=== PATIENT | female | born 1975 | race Caucasian/White ===

== ENCOUNTER 2016-12-27 16:07 | Observation (INO) ==
--- NOTE | 2016-12-27 17:03 | Emergency Department Note ---
Disposition Clinical Impression: Pyelonephritis, Ureterolithiasis, Hydronephrosis with obstructing calculus Disposition: Admitted As Inpatient Condition: Good Time of Disposition: 18:43 Abdominal Pain HPI - General Chief Complaint: ED Abdominal Pain Stated Complaint: Right Flank Pain Time Seen by Provider: 12/27/16 16:47 Source: patient Mode of arrival: ambulatory Limitations: no limitations Nursing Notes Reviewed: Yes Vital Signs Reviewed: Yes - History of Present Illness HPI Narrative: 41-year-old female history of PCOS presents to the ED with right flank pain. She reports right flank pain that sharp with radiation into the groin and ongoing for the past 4 days. She reports nausea for the past few days with a few episodes of vomiting today. She notes blood in her urine. She was evaluated by her primary care physician yesterday Dr. Lincoln was given tramadol, Zofran Flomax. There is concern for possible obstruction issues recommended to come here for CT imaging. She has a history of kidney stones in the past, episode 4 years ago. States this feels just like it. At that time she required lithotripsy by her urologist at [facility]. No issues since. She has reported some nausea and a low-grade fever here today. Denies any abdominal surgeries. Denies any cough, chest pain, shortness of breath, or blood stool. Pt Subjective Complaint: flank pain Pain Scale: 6 - Related Data Home Medications Medication Instructions Recorded Confirmed Loratadine [Allergy Relief] 10 mg PO DAILY 07/24/16 12/27/16 Metformin [Glucophage] 500 mg PO BID 07/24/16 12/27/16 [place]-3/Dha/Epa/Fish Oil [Fish Oil 1,000 mg PO BID 12/27/16 12/27/16 1,000 mg Softgel] Ondansetron [Zofran] 8 mg PO Q8H PRN 12/27/16 12/27/16 Tamsulosin [Flomax] 0.4 mg PO DAILY 12/27/16 12/27/16 Tramadol HCl [Ultram] 50 mg PO Q6H PRN 12/27/16 12/27/16 Allergies Allergy/AdvReac Type Severity Reaction Status Date / Time No Known Allergies Allergy Verified 07/24/16 10:38 All systems ED: reviewed and negative except as stated. Constitutional: Reports: fever. Denies: chills Cardiovascular: Denies: chest pain Respiratory: Denies: cough, dyspnea Gastrointestinal: Reports: nausea, vomiting. Denies: abdominal pain, diarrhea, melena, hematochezia Genitourinary: Reports: hematuria. 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 Psychiatric history: Reports: no psych history - Social History Smoking status: Never smoker Alcohol use: Reports: none Drug use: Reports: none Physical Exam - General Limitations: no limitations General appearance: alert, in no apparent distress - Head Head exam: atraumatic, normocephalic, normal inspection - Eye Eye exam: Present: normal appearance, PERRL, EOMI - ENT ENT exam: normal exam, normal oropharynx, mucous membranes moist - Neck Neck exam: Present: normal inspection, full ROM, trachea midline - Chest Chest inspection: Present: normal inspection, symmetric chest wall rise - Respiratory Respiratory exam: Present: normal lung sounds bilaterally. Absent: respiratory distress, wheezes - Cardiovascular Cardiovascular exam: Present: regular rate, normal rhythm, normal heart sounds. Absent: systolic murmur, diastolic murmur - Abdominal Exam Abdominal exam: Present: soft, Non-Tender, normal bowel sounds. Absent: tenderness, distention, guarding, rebound, rigidity, Caal's sign, Rovsing's sign, tenderness at McBurney's Point - Extremities Exam Extremities exam: Present: normal inspection, full ROM, normal capillary refill. Absent: tenderness, pedal edema, calf tenderness - Back Exam Back exam: Present: normal inspection, full ROM. Absent: tenderness, CVA tenderness (R), CVA tenderness (L) - Neurological Exam Neurological exam: Present: alert, oriented X3 - Psychiatric Psychiatric exam: Present: normal affect, normal mood - Skin Skin exam: Present: warm, dry, intact, normal color Course Course Narrative: 41-year-old female presents with right flank pain ongoing for past 4 days. History of kidney stones in the past. She has a low-grade fever 100.3. Reports nausea with some vomiting. She took tramadol prior to arrival. She is currently in no acute distress. Lungs are clear auscultation bilaterally. Abdomen is soft nontender nondistended. She does not had any CVA tenderness. She reports coming for possible CT imaging to rule out impacted stone. Multiple discussions with patient regarding risks and benefits with CT imaging. She reports this feels just like here kidney stones. Will check basic labs, IVF, urine, and CT scan without contrast. - Reevaluation(s) Reevaluation #1: Urine looks consistent with possible pyelonephritis, TNTC WBC, many bacteria, moderate leuko esterase and large nitrites. Will treat with fluids and Ceftriaxone. Time: 17:41 Reevaluation #2: She has a 8mm obstructing stone in the right ureter. Given her urine and the fever concern for pyelonephritis and sepsis. WBC is elevated 18.7. Will call Urology for possible stent placement tonight. Blood cultures and lactate ordered. She will be given the 3L fluid resuscitation. Morphine for pain. Patient last ate at 11 o'clock this morning. Abdomen/Pelvis CT 12/27/16 16:59 IMPRESSION: Moderate right hydronephrosis and hydroureter with surrounding infiltration of fat. 8 mm obstructing calculus at the distal right ureter. D/ / Errol Martinez MD / Errol Martinez MD Interpreting Provider: Errol Martinez MD Time: 18:39 Reevaluation #3: Dr. Urias is at bedside to evaluate and obtain consent for surgery. Time: 19:30 - Consultations Consultation #1: Spoke to Dr. Pavel Urias urologist for possible stone removal. Orders to keep her NPO tonight. Possible removal tonight vs. tomorrow. Will call back. Time: 18:40 Consultation #2: Patient admitted to Dr. Urias, he will come in for surgery and stent tonight. Patient is in agreement with plan. No questions. Time: 18:54 Vital Signs Temperature 100.3 F H 12/27/16 16:08 Pulse Rate 65 12/27/16 16:08 Respiratory Rate 18 12/27/16 16:08 Blood Pressure 120/82 12/27/16 16:08 O2 Sat by Pulse Oximetry 95 12/27/16 16:08 Temperature 100.9 F H 12/27/16 21:17 Pulse Rate 118 12/27/16 22:51 Respiratory Rate 18 12/27/16 21:17 Blood Pressure 122/69 12/27/16 22:51 O2 Sat by Pulse Oximetry 95 12/27/16 22:51 Oxygen Delivery Oxygen Delivery Room Air Abdominal Pain - Medical Records Medical records reviewed: Yes I reviewed the patient's medical records. - Lab Data Lab results reviewed: Yes I reviewed the patient's lab results. Result diagrams: 12/27/16 17:17 12/27/16 17:17 Lab Results 12/27/16 12/27/16 12/27/16 Range/Units 16:48 16:50 17:17 WBC 18.7 H (4.3-11.1) K/mcL RBC 4.46 (3.82-4.97) M/mcL Hgb 12.4 (11.5-15.4) g/dL Hct 38.1 (35.3-44.9) % MCV 85.4 (83.0-100.0) fL MCH 27.8 L (28.0-33.3) pg MCHC 32.5 (31.6-35.5) g/dL RDW 14.3 (11.5-14.5) % Plt Count 244 (140-400) K/mcL MPV 9.5 (9.4-12.4) fL Immature Gran % 0.6 (0-4) % Seg Neutrophils % 86.8 % Lymphocytes % 5.8 % Monocytes % 6.6 % Eosinophils % 0.0 % Basophils % 0.2 % Neutrophils # 16.3 H (1.6-8.9) K/mcL Lymphocytes # 1.1 (0.6-4.6) K/mcL Monocytes # 1.2 (0.0-1.3) K/mcL Eosinophils # 0.0 (0.0-0.6) K/mcL Basophils # 0.0 (0.0-0.2) K/mcL Sodium (136-145) mEq/L Potassium (3.5-4.5) mEq/L Chloride (98-109) mEq/L Carbon Dioxide (19-29) mEq/L BUN (7-20) mg/dL Creatinine (0.57-1.11) mg/dL Est GFR ( Amer) (> 60) Est GFR (Non-Af Amer) (> 60) BUN/Creatinine Ratio (6-26) Glucose (70-99) mg/dL Calculated Osmolality (280-300) Calcium (8.6-10.8) mg/dL Total Bilirubin (0.2-1.2) mg/dL Direct Bilirubin (0.0-0.5) mg/dL Indirect Bilirubin (0.0-1.2) mg/dL AST (5-34) Units/L ALT (0-55) Units/L Alkaline Phosphatase (38-126) Units/L Serum Total Protein (6.0-8.3) g/dL Albumin (3.5-5.0) g/dL Globulin (2.4-3.5) g/dL Albumin/Globulin Ratio (1.1-2.2) Amylase (25-125) Units/L Lipase (8-78) Units/L Urine Color Yellow (Yellow) Urine Clarity Cloudy A (Clear) Urine pH 6.0 (5.0-8.0) pH Units Ur Specific [place] 1.021 (1.010-1.025) Urine Protein 30 H (Neg-Trace) mg/dL Urine Glucose (UA) Normal (Normal) mg/dL Urine Ketones Negative (Negative) mg/dL Urine Blood Small H (Negative) Urine Nitrite Positive A (Negative) Urine Bilirubin Negative (Negative) Urine Urobilinogen Normal (Normal) mg/dL Ur Leukocyte Esterase Moderate H (Negative) Urine Microscopic RBC 0-3 (0-3) per hpf Urine Microscopic WBC TNTC H (0-3) per hpf Ur Squamous Epith Cells Many H (None-Few) per lpf Urine Bacteria Many H (None-Few) per hpf Ur Culture Indicated? YES A (NO) Urine Test Negative (Negative) 12/27/16 Range/Units 17:17 WBC (4.3-11.1) K/mcL RBC (3.82-4.97) M/mcL Hgb (11.5-15.4) g/dL Hct (35.3-44.9) % MCV (83.0-100.0) fL MCH (28.0-33.3) pg MCHC (31.6-35.5) g/dL RDW (11.5-14.5) % Plt Count (140-400) K/mcL MPV (9.4-12.4) fL Immature Gran % (0-4) % Seg Neutrophils % % Lymphocytes % % Monocytes % % Eosinophils % % Basophils % % Neutrophils # (1.6-8.9) K/mcL Lymphocytes # (0.6-4.6) K/mcL Monocytes # (0.0-1.3) K/mcL Eosinophils # (0.0-0.6) K/mcL Basophils # (0.0-0.2) K/mcL Sodium 133 L (136-145) mEq/L Potassium 3.6 (3.5-4.5) mEq/L Chloride 97 L (98-109) mEq/L Carbon Dioxide 26 (19-29) mEq/L BUN 19 (7-20) mg/dL Creatinine 1.23 H (0.57-1.11) mg/dL Est GFR ( Amer) 59 L (> 60) Est GFR (Non-Af Amer) 49 L (> 60) BUN/Creatinine Ratio 15 (6-26) Glucose 148 H (70-99) mg/dL Calculated Osmolality 281 (280-300) Calcium 9.3 (8.6-10.8) mg/dL Total Bilirubin 1.2 (0.2-1.2) mg/dL Direct Bilirubin 0.4 (0.0-0.5) mg/dL Indirect Bilirubin 0.8 (0.0-1.2) mg/dL AST 13 (5-34) Units/L ALT 22 (0-55) Units/L Alkaline Phosphatase 78 (38-126) Units/L Serum Total Protein 8.0 (6.0-8.3) g/dL Albumin 3.4 L (3.5-5.0) g/dL Globulin 4.6 H (2.4-3.5) g/dL Albumin/Globulin Ratio 0.7 L (1.1-2.2) Amylase 44 (25-125) Units/L Lipase 13 (8-78) Units/L Urine Color (Yellow) Urine Clarity (Clear) Urine pH (5.0-8.0) pH Units Ur Specific [place] (1.010-1.025) Urine Protein (Neg-Trace) mg/dL Urine Glucose (UA) (Normal) mg/dL Urine Ketones (Negative) mg/dL Urine Blood (Negative) Urine Nitrite (Negative) Urine Bilirubin (Negative) Urine Urobilinogen (Normal) mg/dL Ur Leukocyte Esterase (Negative) Urine Microscopic RBC (0-3) per hpf Urine Microscopic WBC (0-3) per hpf Ur Squamous Epith Cells (None-Few) per lpf Urine Bacteria (None-Few) per hpf Ur Culture Indicated? (NO) Urine Test (Negative) - Radiology Data Radiology results reviewed: Yes I reviewed the patient's radiology results. Abdomen/Pelvis CT 12/27/16 16:59 IMPRESSION: Moderate right hydronephrosis and hydroureter with surrounding infiltration of fat. 8 mm obstructing calculus at the distal right ureter. D/ / Errol Martinez MD / Errol Martinez MD Interpreting Provider: Errol Martinez MD Attestation Statement - Attestation Attestation: I examined this patient and my medical decision-making was reviewed with the YARD OPERATOR/PA/Advanced Practice Nurse/Resident Physician. I agree with the documented findings, disposition and treatment plan as described except to the extent set forth below. Patient to the emergency department if any flank pain. Concern for kidney stones. She has had to have lithotripsy in the past. On exam she has right CVA tenderness. She is febrile. Plan. The patient has a UTI per her urinalysis with positive nitrites, large leuks, and too many to count white cells. CT pending to rule out an impacted stone. Giving IV fluids and Rocephin at this time.
[2016-12-27 17:06] LABS: Bilirubin,Urine Negative (Negative); Blood,Urine Small (Negative); Clarity,Urine Cloudy (Clear); Color,Urine Yellow (Yellow); Glucose,Urine (UA) Normal (Normal); Ketones,Urine Negative (Negative); Leukocyte Esterase,Urine Moderate (Negative); Nitrite,Urine Positive (Negative); Protein,Urine 30 mg/dL (Neg-Trace); Specific Gravity,Urine 1.021 (1.010-1.025); Urobilinogen,Urine Normal (Normal)
[2016-12-27 17:08] LABS: Bacteria,Urine Many per hpf (None-Few); RBC,Urine 0-3 per hpf (0-3); Squamous Epithelial Cell,Urine Many per lpf (None-Few); WBC,Urine TNTC per hpf (0-3)
[2016-12-27] MEDS ORDERED: 0.9 % Sodium Chloride 1,000 ML IV ONE (17:22)
[2016-12-27 17:24] LABS: Basophils % 0.2 %; Hematocrit 38.1 % (35.3-44.9); Hemoglobin 12.4 g/dL (11.5-15.4); Immature Granulocytes % 0.6 % (0-4); Lymphocytes # 1.1 K/mcL (0.6-4.6); Lymphocytes % 5.8 %; Mean Corpuscular HGB Conc 32.5 g/dL (31.6-35.5); Mean Corpuscular Hemoglobin 27.8 pg (28.0-33.3); Mean Corpuscular Volume 85.4 fL (83.0-100.0); Mean Platelet Volume 9.5 fL (9.4-12.4); Monocytes # 1.2 K/mcL (0.0-1.3); Monocytes % 6.6 %; Neutrophils # 16.3 K/mcL (1.6-8.9); Platelet Count 244 K/mcL (140-400); Red Blood Count 4.46 M/mcL (3.82-4.97); Red Cell Distribution Width 14.3 % (11.5-14.5); Segmented Neutrophils % 86.8 %
[2016-12-27 17:39] LABS: Albumin 3.4 g/dL (3.5-5.0); Albumin/Globulin Ratio 0.7 (1.1-2.2); Bilirubin,Direct 0.4 mg/dL (0.0-0.5); Bilirubin,Indirect 0.8 mg/dL (0.0-1.2); Bilirubin,Total 1.2 mg/dL (0.2-1.2); Calcium 9.3 mg/dL (8.6-10.8); Globulin 4.6 g/dL (2.4-3.5); Potassium 3.6 mEq/L (3.5-4.5)
[2016-12-27] MEDS ORDERED: 0.9 % Sodium Chloride 1,000 ML IVC ONE ×2 (18:14→18:48)
[2016-12-27] MEDS ORDERED: Ondansetron 4 MG/2 ML VIAL IV ONE (18:30)
[2016-12-27] MEDS ORDERED: *HR* Morphine 2 MG/ML SYRINGE IV ONE (18:30)
--- NOTE | 2016-12-27 19:31 | Urology History & Physical ---
Date of Encounter: 12/27/16 Time of Encounter: 19:28 Assessment and Plan (1) Acute renal insufficiency Current Visit: Yes Status: Acute IVF (2) UTI (urinary tract infection) Current Visit: Yes Status: Acute Qualifiers: Urinary tract infection type: acute pyelonephritis Qualified Code(s): N10 - Acute pyelonephritis (3) Hydronephrosis with obstructing calculus Current Visit: Yes Status: Acute pt has a mid ureteral stone with UTI, leukocystosis, acute renal insufficiency, and fever. I do not feel that a stone extraction is safe with the potential of sepsis/infection. plan to place ureteral stent tonight and bring into the hospital for IVF and ABX. History of Present Illness Chief complaint: right flank pain HPI: Ms. Mckee is a 41 year old female presents to the ER with severe right flank pain. hx of stones. fever over 100 in ER. pain better now. WBC 18,000. tachycardia 123 initially. CR 1.23 Past Med Surg Social Fam HX - Past Medical History Medical history: kidney stones, other Psychiatric history: no psych history - Social History Smoking Status: Never smoker Smokeless Tobacco Status: No Alcohol use: none Drug use: none - Family History Mother Living Status: Still Living Hx Family Cardiac Disorders: No Hx Family Respiratory Disorders: No Hx Family Cancer: No Hx Family GI Disorders: No Hx Family Endocrine Disorder: No Hx Family Neuromuscular Disorders: No Hx Family Neurologic Disorders: No Hx Family HEENT Disorders: No Hx Family Autoimmune Disorders: No Medications and Allergies Loratadine [Allergy Relief] 10 mg PO DAILY 07/24/16 [History] Metformin [Glucophage] 500 mg PO BID 07/24/16 [History] [place]-3/Dha/Epa/Fish Oil [Fish Oil 1,000 mg Softgel] 1,000 mg PO BID 12/27/16 [ History] Ondansetron [Zofran] 8 mg PO Q8H PRN 12/27/16 [History] Tamsulosin [Flomax] 0.4 mg PO DAILY 12/27/16 [History] Tramadol HCl [Ultram] 50 mg PO Q6H PRN 12/27/16 [History] Allergies No Known Allergies Allergy (Verified 07/24/16 10:38) Review of Systems - Constitutional chills, fever(s), malaise - EENT Nose, mouth and throat: no dizziness - Cardiovascular no chest pain - Respiratory no cough - Gastrointestinal abdominal pain, nausea - Genitourinary Genitourinary: flank pain - Musculoskeletal back pain - Integumentary no erythema - Neurological no confusion - Psychiatric no anxiety - Hematologic/Lymphatic no easy bleeding - Allergic/Immunologic no throat swelling Exam Initial Vital Signs Temp Pulse Resp BP Pulse Ox 100.3 F H 65 18 120/82 95 12/27/16 16:08 12/27/16 16:08 12/27/16 16:08 12/27/16 16:08 12/27/16 16:08 - General physical appearance Present: well developed, no distress - Eyes Present: PERRL - ENT Present: normal nares - Neck Present: no masses - Respiratory Present: normal respiratory effort - Cardiovascular Cardiovascular exam IM: RRR - Abdomen Abdomen: Present: soft - Rectum Rectum: Present: normal sphincter tone - Integumentary Present: no rash - Musculoskeletal Present: normal gait Urology Results - Labs 12/27/16 17:17 12/27/16 17:17 Abnormal lab results WBC 18.7 K/mcL (4.3-11.1) H 12/27/16 17:17 MCH 27.8 pg (28.0-33.3) L 12/27/16 17:17 Neutrophils # 16.3 K/mcL (1.6-8.9) H 12/27/16 17:17 Sodium 133 mEq/L (136-145) L 12/27/16 17:17 Chloride 97 mEq/L (98-109) L 12/27/16 17:17 Creatinine 1.23 mg/dL (0.57-1.11) H 12/27/16 17:17 Est GFR ( Amer) 59 (> 60) L 12/27/16 17:17 Est GFR (Non-Af Amer) 49 (> 60) L 12/27/16 17:17 Glucose 148 mg/dL (70-99) H 12/27/16 17:17 Albumin 3.4 g/dL (3.5-5.0) L 12/27/16 17:17 Globulin 4.6 g/dL (2.4-3.5) H 12/27/16 17:17 Albumin/Globulin Ratio 0.7 (1.1-2.2) L 12/27/16 17:17 Urine Clarity Cloudy (Clear) A 12/27/16 16:50 Urine Protein 30 mg/dL (Neg-Trace) H 12/27/16 16:50 Urine Blood Small (Negative) H 12/27/16 16:50 Urine Nitrite Positive (Negative) A 12/27/16 16:50 Ur Leukocyte Esterase Moderate (Negative) H 12/27/16 16:50 Urine Microscopic WBC TNTC per hpf (0-3) H 12/27/16 16:50 Ur Squamous Epith Cells Many per lpf (None-Few) H 12/27/16 16:50 Urine Bacteria Many per hpf (None-Few) H 12/27/16 16:50 Ur Culture Indicated? YES (NO) A 12/27/16 16:50 All other labs normal.
--- NOTE | 2016-12-27 19:46 | Anesthesia Evaluation PreOp ---
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 History: Denies Any Significant HX Other Medical History: Other (PCOS) Anesthesia History: No Prior Anesthetic Complications, Past Anesthesia Alcohol Use: none Drug use: none Medications and Allergies Loratadine [Allergy Relief] 10 mg PO DAILY 07/24/16 [History] Metformin [Glucophage] 500 mg PO BID 07/24/16 [History] [place]-3/Dha/Epa/Fish Oil [Fish Oil 1,000 mg Softgel] 1,000 mg PO BID 12/27/16 [ History] Ondansetron [Zofran] 8 mg PO Q8H PRN 12/27/16 [History] Tamsulosin [Flomax] 0.4 mg PO DAILY 12/27/16 [History] Tramadol HCl [Ultram] 50 mg PO Q6H PRN 12/27/16 [History] Allergies No Known Allergies Allergy (Verified 07/24/16 10:38) - Meds/Allergy Pre-op Review Medications Reviewed: Yes Allergies Reviewed: Yes Beta Blockers on Current Med List: No Anesthesia Results - Labs 12/27/16 17:17 12/27/16 17:17 Anesthesia Exam Vital Signs/O2 Sat/Glucose, Most Current Temp Pulse Resp BP Pulse Ox 12/27/16 19:35 0 0/0 12/27/16 18:39 99.8 F H 123 16 113/59 96 12/27/16 16:08 100.3 F H 65 18 120/82 95 Height: 1.65 Weight: 95 NPO (# of Hours): >8 - HEENT Pupil (Motor): Pupils equal, EOMI Mallampati: II Teeth: Normal Oral Opening: Greater than 3 (good underbite) - [employer] LOC: Oriented [employer] Motor: Normal RUE, Normal LUE, Normal RLE, Normal LLE, Normal Face [employer] Sensory: Normal: RUE, LUE, RLE, LLE, Face - Cardiac Rhythm: Regular Murmur: None - Pulmonary Breath Sounds: bilateral Clear Respiratory Effort: Symmetrical Anesthesia Assess/Plan ASA Score: 2 Modified Joby Scale for Level of Consciousness: Cooperative, oriented, and tranquil Anesthetic Plan: General Monitoring Plan: Standard Monitors Recovery Plan: PACU
[2016-12-27] MEDS ORDERED: *HR* FentaNYL (PF) 100 MCG/2 ML VIAL ONE (19:53)
[2016-12-27] MEDS ORDERED: *HR* Propofol 200 MG/20 ML VIAL IVP ONE (19:53)
[2016-12-27] MEDS ORDERED: Lidocaine -MPF 2% 2 ML VIAL ONE (19:54)
[2016-12-27] MEDS ORDERED: *HR* Succinylcholine 200 MG/10 ML VIAL IVP ONE (19:54)
[2016-12-27] MEDS ORDERED: Ondansetron 4 MG/2 ML VIAL ONE (19:54)
[2016-12-27] MEDS ORDERED: Dexamethasone 4 MG/ML VIAL ONE (19:54)
[2016-12-27] MEDS ORDERED: *HR* HYDROmorphone (PF) 1 MG/ML SYRINGE IVP PRN ×2 (20:37→23:19)
[2016-12-27] MEDS ORDERED: Ringers Solution, Lactated 1,000 ML ONE (20:46)
--- NOTE | 2016-12-27 21:08 | Anesthesia Evaluation Post Op ---
Date of Encounter: 12/27/16 Time of Encounter: 21:08 - Vital Signs Vital Signs: Vital Signs/O2 Sat/Glucose, Most Current Temp Pulse Resp BP Pulse Ox 12/27/16 20:57 100.8 F H 127 18 126/74 96 12/27/16 20:47 128 20 127/74 95 12/27/16 20:37 127 22 127/77 95 12/27/16 20:27 102.0 F H 120 21 124/72 99 12/27/16 19:35 0 0/0 12/27/16 18:39 99.8 F H 123 16 113/59 96 tach with fever, has abx ordered per Dr. Urias. BP stable - Lungs Lungs: Clear Ascult./Percussion - Airway Airway: Non-obstructed - Cardiovascular Regular Rate - Mental Status Mental Status: Alert & Oriented, Answers Appropriately - Pain Pain Scale: 0 - Nausea Vomiting Nausea Vomiting: Not Present - Hydration Hydration: Ice chips - Discharge PostOp Status: Transfer Patient to floor
[2016-12-27] MEDS ORDERED: *HR* Promethazine 25 MG/ML VIAL IVP PRN (23:19)
[2016-12-27] MEDS ORDERED: 0.9 % Sodium Chloride 1,000 ML IVC SCH (23:19)
[2016-12-27] MEDS ORDERED: Naloxone 0.4 MG/ML INJ IVP PRN (23:19)
[2016-12-27] MEDS ORDERED: *HR* Morphine 2 MG/ML SYRINGE IVP PRN (23:19)
[2016-12-27] MEDS ORDERED: Ondansetron 4 MG/2 ML VIAL IVP PRN (23:19)
[2016-12-28] MEDS: Hyoscyamine SL 0.125 MG TAB.SUBL SL PRN ×2 (00:09→03:51)
[2016-12-28] MEDS: *HR* HYDROcodone/Acet 5/325 mg TABLET PO SCH ×4 (00:09→08:43)
[2016-12-28 01:59] LABS: Basophils % 0.2 %; Hematocrit 33.7 % (35.3-44.9); Immature Granulocytes % 0.8 % (0-4); Lymphocytes # 0.9 K/mcL (0.6-4.6); Mean Corpuscular HGB Conc 32.6 g/dL (31.6-35.5); Mean Corpuscular Hemoglobin 28.1 pg (28.0-33.3); Mean Platelet Volume 9.9 fL (9.4-12.4); Monocytes # 0.9 K/mcL (0.0-1.3); Monocytes % 4.9 %; Neutrophils # 16.5 K/mcL (1.6-8.9); Platelet Count 209 K/mcL (140-400); Red Blood Count 3.92 M/mcL (3.82-4.97); Red Cell Distribution Width 14.4 % (11.5-14.5); Segmented Neutrophils % 89.1 %
[2016-12-28 02:16] LABS: BUN/Creatinine Ratio 13 (6-26); Blood Urea Nitrogen 11 mg/dL (7-20); Calcium 8.1 mg/dL (8.6-10.8); Carbon Dioxide 23 mEq/L (19-29); Chloride 104 mEq/L (98-109); Glucose 188 mg/dL (70-99); Osmolality,Calculated 288 (280-300); Potassium 3.8 mEq/L (3.5-4.5); Sodium 137 mEq/L (136-145); eGFR For African Americans > 60 (> 60); eGFR For Non-African Americans > 60 (> 60)
[2016-12-28 07:01] VITALS: BP 115/76
--- NOTE | 2016-12-28 08:26 | Discharge Summary ---
Date of Encounter: 12/28/16 Time of Encounter: 08:24 - Discharge Diagnosis (1) Acute renal insufficiency Priority: Secondary Status: Resolved (2) UTI (urinary tract infection) Priority: Secondary Status: Acute Qualifiers: Urinary tract infection type: acute pyelonephritis Qualified Code(s): N10 - Acute pyelonephritis (3) Hydronephrosis with obstructing calculus Priority: Primary Status: Resolved - Discharge Medications Prescriptions: HYDROcodone/Acet 5/325 mg [[place] 5-325 mg] 1 tab PO Q4HR PRN #20 tablet PRN Reason: Pain Cefdinir [Omnicef] 300 mg PO BID #20 capsule Phenazopyridine [Pyridium] 200 mg PO TID PRN #30 tablet PRN Reason: dysuria Home Medications: Loratadine [Allergy Relief] 10 mg PO DAILY 07/24/16 [History] Metformin [Glucophage] 500 mg PO BID 07/24/16 [History] [place]-3/Dha/Epa/Fish Oil [Fish Oil 1,000 mg Softgel] 1,000 mg PO BID 12/27/16 [ History] Tramadol HCl [Ultram] 50 mg PO Q6H PRN 12/27/16 [History] Cefdinir [Omnicef] 300 mg PO BID #20 capsule 12/28/16 [Rx] HYDROcodone/Acet 5/325 mg [[place] 5-325 mg] 1 tab PO Q4HR PRN #20 tablet [Rx] Phenazopyridine [Pyridium] 200 mg PO TID PRN #30 tablet 12/28/16 [Rx] Allergies/Adverse Reactions: Allergies No Known Allergies Allergy (Verified 07/24/16 10:38) Labs on day of discharge: Labs from last 24 hours 12/28/16 12/28/16 01:27 01:27 WBC 18.6 H RBC 3.92 Hgb 11.0 L Hct 33.7 L MCV 86.0 MCH 28.1 MCHC 32.6 RDW 14.4 Plt Count 209 MPV 9.9 Immature Gran % 0.8 Seg Neutrophils % 89.1 Lymphocytes % 5.0 Monocytes % 4.9 Eosinophils % 0.0 Basophils % 0.2 Neutrophils # 16.5 H Lymphocytes # 0.9 Monocytes # 0.9 Eosinophils # 0.0 Basophils # 0.0 Sodium 137 Potassium 3.8 Chloride 104 Carbon Dioxide 23 BUN 11 Creatinine 0.87 Est GFR ( Amer) > 60 Est GFR (Non-Af Amer) > 60 BUN/Creatinine Ratio 13 Glucose 188 H Calculated Osmolality 288 Calcium 8.1 L - Impressions ITS Impressions Retrograde Pyelogram 12/27/16 20:00 IMPRESSION: Intraprocedural fluoroscopic spot images as above. See separate procedure report for more information. D/ / Sergio Coulter MD / Sergio Coulter MD Interpreting Provider: Sergio Coulter MD Date of admission: 12/27/16 18:57 Primary care physician: Magali Thompson Discharging clinician: Pavel Urias Anticipated date of discharge: 12/28/16 - Patient Status Disposition: Home, Self-Care Functional capacity at discharge: independent ambulation Overall status at discharge: patient is progressing back to baseline - Discharge Instructions Follow Up With: Magali Thompson MD [Primary Care Provider] - Pavel Urias MD [Partnered Physician] - (My office will call to schedule stone extraction) Additional Instructions: Expect stent discomfort including urgency, frequency, burning on urination, blood in the urine, flank pain especially with urination. These symptoms are normal. Call if excessive. Call if fever over 101 that is not decreased with ibuprofen or Tylenol Call if significant malaise or chills No activity restrictions, but increased activity may cause more stent discomfort My office will contact patient on Friday to schedule stone extraction - Diet and Activity Activity: increase activity as tolerated Diet: advance to your usual diet - Hospital Course Hospital course: Ms. Mckee is a 41 year old female admitted last night with acute renal insufficiency, obstructing ureteral stone, UTI. Status post and placement. No consultations. Overnight MAXIMUM TEMPERATURE 100.5. Tachycardia has decreased from 130-105. Normotensive. Patient feels better. Only describing stent discomfort. No nausea. Preliminary urine culture positive. Creatinine return to normal. Leukocytosis stable - Time Spent with Patient Total time spent providing and/or coordinating discharge services: Less than 30 minutes Exam Initial Vital Signs Temp Pulse Resp BP Pulse Ox 100.3 F H 65 18 120/82 95 12/27/16 16:08 12/27/16 16:08 12/27/16 16:08 12/27/16 16:08 12/27/16 16:08 - General physical appearance Present: well developed, no distress - VTE Documentation of Mechanical Device: Intermittent pneumatic compression device
[2016-12-28] MEDS ORDERED: Loratadine 10 MG TABLET PO SCH (09:00)
--- NOTE | 2016-12-28 10:40 | Operative Note ---
Date of procedure: 12/28/16 Pre-op diagnosis: 9 mm mid ureteral stone with hydronephrosis and infection Post-op diagnosis: same Procedure: Cystoscopy. Right retrograde pyelogram. Right ureteral stent placement Anesthesia: GETA Surgeon: Pavel Urias Estimated blood loss (cc): 0 Specimen: None Condition: stable Disposition: PACU Procedure in Detail: PROCEDURE IN DETAIL: Patient was taken back to the operating room, positioned supine on the operating table. Anesthesia was applied without complication. They were moved into dorsal lithotomy. Careful attention was maintained to cushion all pressure points for patient's safety. They were prepped and draped in sterile fashion. Time-out was performed with the proper patient and procedure. A 21-Vincentian rigid cystoscope was inserted into the bladder without difficulty. Systematic examination of bladder revealed no abnormalities. The ureteral orifice was cannulated using a 5-Vincentian ureteral Catheter and a retrograde pyelogram was performed using Isovue. A filling defect was identified which corresponded to the stone in the mid ureter. Stone was quite obstructing and it was difficult to navigate the ZIP wire around the stone. I was eventually able to succeed in passing the ZIP wire to the renal pelvis. I eventually placed a 4.8 x 26 ureteral stent. This was confirmed in good position with fluoroscopy. No string was left attached. Bladder was drained at the end of the procedure. There was no significant purulence from the right collecting system. She will require a staged ureteroscopic stone extraction.
== END 2016-12-28 09:40 | disposition home or self-care (01) ==
LOC: EMEROO 16:07 → 3BNU 16:07
PROVIDERS: ADMIT Urology; ATTEND Urology

== ENCOUNTER 2018-02-28 09:00 | Inpatient (IN) ==
[2018-02-28] MEDS ORDERED: Aspirin 81 MG TAB.CHEW PO ONE (09:06)
[2018-02-28] MEDS ORDERED: Nitroglycerin 0.4 MG TAB.SUBL SL ONE (09:06)
[2018-02-28 09:30] LABS: Basophils % 0.6 %; Eosinophils # 0.2 K/mcL (0.0-0.6); Eosinophils % 2.3 %; Hematocrit 44.2 % (35.3-44.9); Hemoglobin 15.4 g/dL (11.5-15.4); Immature Granulocytes % 0.2 % (0-4); Lymphocytes # 2.7 K/mcL (0.6-4.6); Lymphocytes % 40.4 %; Mean Corpuscular HGB Conc 34.8 g/dL (31.6-35.5); Mean Corpuscular Hemoglobin 28.9 pg (28.0-33.3); Mean Corpuscular Volume 83.1 fL (83.0-100.0); Mean Platelet Volume 10.3 fL (9.4-12.4); Monocytes # 0.5 K/mcL (0.0-1.3); Monocytes % 6.8 %; Neutrophils # 3.3 K/mcL (1.6-8.9); Platelet Count 236 K/mcL (140-400); Red Blood Count 5.32 M/mcL (3.82-4.97); Red Cell Distribution Width 13.2 % (11.5-14.5); Segmented Neutrophils % 49.7 %
--- NOTE | 2018-02-28 09:33 | Emergency Department Note ---
Disposition Clinical Impression: NSTEMI (non-ST elevated myocardial infarction) Chest pain Qualifiers: Chest pain type: unspecified Qualified Code(s): R07.9 - Chest pain, unspecified Disposition: Admitted As Inpatient Condition: Fair Time of Disposition: 11:46 Chest Pain HPI - General Chief Complaint: ED Chest Pain Stated Complaint: Chest Pain Time Seen by Provider: 02/28/18 09:04 Source: patient Limitations: no limitations Vital Signs Reviewed: Yes Nursing Notes Reviewed: Yes - History of Present Illness HPI Narrative: Patient is a 43-year-old female who presents to [facility] ED with a chief complaint of right-sided chest pain that radiates into her right shoulder. States her symptoms started yesterday evening around 7 PM. States she was outside at the time and felt like she was getting some allergies coming on. She went inside and started having chest pain. States the pain lasted around 10-15 minutes each time. The pain came back 3 times throughout the night and then started coming on again this morning so the patient decided to come in to get checked out. Denies any nausea, vomiting, fever or chills. Patient did not have any diaphoresis. States she went to the shower each time and the hot water seemed to help with the shoulder pain. She also laid on a hot heating pad last night. Past medical history significant for gestational diabetes, no other medical problems. States her father had a myocardial infarction at the age of 44. Pt complaint: chest pain Onset (ago): hour(s) Duration: intermittent Onset: during rest Pain Location: right chest Severity: severe Severity scale (1-10): 7 Quality: aching, sharp Pain Radiation: RUE Improves with: nothing Worsens with: nothing Associated symptoms: Denies: nausea, vomiting, diaphoresis, dyspnea, fever Treatments prior to arrival chest pain: none - Related Data Home Medications Medication Instructions Recorded Confirmed metFORMIN [Glucophage] 500 mg PO BID 07/24/16 01/01/17 [place]-3/Dha/Epa/Fish Oil [Fish Oil 1,000 mg PO BID 12/27/16 01/01/17 1,000 mg Softgel] Loratadine [Claritin] 10 mg PO DAILY 02/28/18 02/28/18 Allergies Allergy/AdvReac Type Severity Reaction Status Date / Time No Known Allergies Allergy Verified 02/28/18 10:16 All systems ED: reviewed and negative except as stated. Chest Pain PMH - Past Medical History Medical history: Reports: kidney stones, other Psychiatric history: Reports: no psych history DRIVER LICENSE REVIEWING OFFICER history: Reports: no DRIVER LICENSE REVIEWING OFFICER history - Social History Smoking Status: Never smoker Alcohol use: Reports: none Drug use: Reports: none Physical Exam - General Limitations: no limitations General appearance: alert, in no apparent distress - Head Head exam: atraumatic, normocephalic, normal inspection - Eye Eye exam: Present: normal appearance, EOMI - ENT ENT exam: normal exam, normal oropharynx, mucous membranes moist - Neck Neck exam: Present: normal inspection, full ROM, trachea midline - Chest Chest inspection: Present: normal inspection, symmetric chest wall rise. Absent : tenderness, rash - Respiratory Respiratory exam: Present: normal lung sounds bilaterally - Cardiovascular Cardiovascular exam: Present: normal rhythm, tachycardia - Abdominal Exam Abdominal exam: Present: soft, Non-Tender. Absent: tenderness, distention, guarding, rebound, rigidity - Extremities Exam Extremities exam: Present: normal inspection, full ROM. Absent: tenderness, pedal edema - Back Exam Back exam: Present: normal inspection, full ROM. Absent: tenderness - Neurological Exam Neurological exam: Present: alert, oriented X3 - Psychiatric Psychiatric exam: Present: normal affect, normal mood - Skin Skin exam: Present: warm, dry, intact, normal color Course Course Narrative: Patient seen and examined. Right-sided chest pain that radiates into the right shoulder. Patient has family history of her father having an [place]. No other medical history herself. We will get a cardiopulmonary workup. Her pain is not pleuritic so I do not believe we need to work her up for a pulmonary embolus. Her oxygen saturation is within normal limits. There may be a musculoskeletal component since he seemed to make her shoulder feel better. 324 mg Aspirin given here. Patient currently asymptomatic - Reevaluation(s) Reevaluation #1: An EKG was repeated since the first one had some changes and some artifact from movement. Showed some worsening ST depression in leads 1 and aVL as well as T- wave inversion. I discussed with rouge presser Dr. Flynn who states to admit to the hospitalists and place patient on a heparin drip. Patient's troponin level is 0.20. I discussed with hospitalist Dr. Leong who has accepted patient for admission. Time: 11:46 Vital Signs Temperature 97.9 F 02/28/18 09:01 Pulse Rate 102 02/28/18 09:01 Respiratory Rate 18 02/28/18 09:01 Blood Pressure 171/120 02/28/18 09:01 O2 Sat by Pulse Oximetry 99 02/28/18 09:01 Temperature 97.9 F 02/28/18 09:05 Pulse Rate 90 02/28/18 10:18 Respiratory Rate 18 02/28/18 10:18 Blood Pressure 145/95 02/28/18 10:18 O2 Sat by Pulse Oximetry 99 02/28/18 10:18 Oxygen Delivery Oxygen Delivery Room Air Chest Pain - Medical Records Medical records reviewed: Yes I reviewed the patient's medical records. - Lab Data Lab results reviewed: Yes I reviewed the patient's lab results. Result diagrams: 02/28/18 09:17 02/28/18 09:17 Lab Results 02/28/18 02/28/18 02/28/18 Range/Units 09:17 09:17 09:17 WBC 6.6 (4.3-11.1) K/mcL RBC 5.32 H (3.82-4.97) M/mcL Hgb 15.4 (11.5-15.4) g/dL Hct 44.2 (35.3-44.9) % MCV 83.1 (83.0-100.0) fL MCH 28.9 (28.0-33.3) pg MCHC 34.8 (31.6-35.5) g/dL RDW 13.2 (11.5-14.5) % Plt Count 236 (140-400) K/mcL MPV 10.3 (9.4-12.4) fL Immature Gran % 0.2 (0-4) % Seg Neutrophils % 49.7 % Lymphocytes % 40.4 % Monocytes % 6.8 % Eosinophils % 2.3 % Basophils % 0.6 % Neutrophils # 3.3 (1.6-8.9) K/mcL Lymphocytes # 2.7 (0.6-4.6) K/mcL Monocytes # 0.5 (0.0-1.3) K/mcL Eosinophils # 0.2 (0.0-0.6) K/mcL Basophils # 0.0 (0.0-0.2) K/mcL PT 10.8 (9.4-12.1) Seconds INR 1.0 APTT 29.7 (26.0-36.0) Seconds Sodium 136 (136-145) mEq/L Potassium 3.6 (3.5-5.1) mEq/L Chloride 102 (98-107) mEq/L Carbon Dioxide 22 L (23-29) mEq/L BUN 7 (6-20) mg/dL Creatinine 0.63 (0.60-1.20) mg/dL Est GFR ( Amer) > 60 (> 60) Est GFR (Non-Af Amer) > 60 (> 60) BUN/Creatinine Ratio 11 (6-26) Glucose 262 H (70-105) mg/dL Calculated Osmolality 289 (280-300) Calcium 9.1 (8.6-10.3) mg/dL Troponin I 0.20 H* (< 0.04) ng/mL - Radiology Data Radiology results reviewed: Yes I reviewed the patient's radiology results. Chest X-Ray 02/28/18 09:07 IMPRESSION: No acute cardiopulmonary process. D/ / 02/28/2018 10:38:02 Rivas Lockett MD / uri Interpreting Provider: Rivas Lockett MD - EKG Data EKG attestation: Yes I reviewed and interpreted this EKG. EKG results narrative: EKG done at 909 shows normal sinus rhythm with a rate of [address] elevation. There is some very mild ST depression noted in leads 2 and aVF as well as a Q-wave in lead 3. There is also a T-wave inversion in lead aVL. Heart Score - Score History: Slightly Suspicious EKG: Non Specific repolarisation Disturbance Age: Less than 45 Risk Factors: 1-2 risk factors Troponin: Greater than 3x normal limit HEART Score Total: 4
--- NOTE | 2018-02-28 09:37 | Emergency Department Note ---
Disposition Clinical Impression: Chest pain Qualifiers: Chest pain type: unspecified Qualified Code(s): R07.9 - Chest pain, unspecified Disposition: Still a Patient Forms: ED Satisfaction Letter General Adult HPI - General Chief complaint: ED Chest Pain Stated complaint: Chest Pain Time Seen by Provider: 02/28/18 09:04 Source: patient Limitations: no limitations - History of Present Illness Pain Scale: 7 - Related Data Home Medications Medication Instructions Recorded Confirmed metFORMIN [Glucophage] 500 mg PO BID 07/24/16 01/01/17 [place]-3/Dha/Epa/Fish Oil [Fish Oil 1,000 mg PO BID 12/27/16 01/01/17 1,000 mg Softgel] Previous Rx's Medication Instructions Recorded Cefdinir [Omnicef] 300 mg PO BID #20 capsule 12/28/16 HYDROcodone/Acet 5/325 mg [[place] 1 tab PO Q4HR PRN #20 tablet 01/01/17 5-325 mg] Phenazopyridine [Pyridium] 200 mg PO TID PRN #30 tablet 01/01/17 Allergies Allergy/AdvReac Type Severity Reaction Status Date / Time No Known Allergies Allergy Verified 02/28/18 09:02 Past Medical History - Past Medical History Medical history: Reports: kidney stones, other Psychiatric history: Reports: no psych history CORPORATION SECRETARY history: Reports: no CORPORATION SECRETARY history - Social History Smoking Status: Never smoker Smokeless Tobacco Status: Yes Alcohol use: Reports: none Drug use: Reports: none Physical Exam - General Limitations: no limitations General appearance: alert, in no apparent distress Course - Reevaluation(s) Reevaluation #1: Attestation note I did independently examine and verified the physical examination findings evaluation workup and disposition of this patient. We had independent face-to- face examination and discussion. The patient was seen with the emergency medicine resident Dr. DEE SYED I examined this patient and my medical decision-making was reviewed with the Resident Physician/TURRET PUNCH PRESS OPERATOR/PA. I agree with the documented findings, disposition and treatment plan as described except to the extent set forth below. Briefly: 43-year-old female no prior history of coronary artery disease has a heart score of about 2 presents with right-sided chest discomfort with no exertional component there is a premature coronary artery disease/VA in her father in his 50s. He should physical examination was benign EKG Sinus tachycardia with nonspecific changes including T-wave inversion in aVL however no old EKG available for comparison. Troponin screening labs and chest x-ray are pending. Disposition pending. Patient received an aspirin in the emergency department Time: 09:36 Vital Signs Temperature 97.9 F 02/28/18 09:01 Pulse Rate 102 02/28/18 09:01 Respiratory Rate 18 02/28/18 09:01 Blood Pressure 171/120 02/28/18 09:01 O2 Sat by Pulse Oximetry 99 02/28/18 09:01 Temperature 97.9 F 02/28/18 09:05 Pulse Rate 92 02/28/18 09:24 Respiratory Rate 18 02/28/18 09:24 Blood Pressure 143/102 02/28/18 09:24 O2 Sat by Pulse Oximetry 98 02/28/18 09:25 Oxygen Delivery Oxygen Delivery Room Air Medical Decision Making - Lab Data Result diagrams: 02/28/18 09:17 Lab Results 02/28/18 Range/Units 09:17 WBC 6.6 (4.3-11.1) K/mcL RBC 5.32 H (3.82-4.97) M/mcL Hgb 15.4 (11.5-15.4) g/dL Hct 44.2 (35.3-44.9) % MCV 83.1 (83.0-100.0) fL MCH 28.9 (28.0-33.3) pg MCHC 34.8 (31.6-35.5) g/dL RDW 13.2 (11.5-14.5) % Plt Count 236 (140-400) K/mcL MPV 10.3 (9.4-12.4) fL Immature Gran % 0.2 (0-4) % Seg Neutrophils % 49.7 % Lymphocytes % 40.4 % Monocytes % 6.8 % Eosinophils % 2.3 % Basophils % 0.6 % Neutrophils # 3.3 (1.6-8.9) K/mcL Lymphocytes # 2.7 (0.6-4.6) K/mcL Monocytes # 0.5 (0.0-1.3) K/mcL Eosinophils # 0.2 (0.0-0.6) K/mcL Basophils # 0.0 (0.0-0.2) K/mcL
[2018-02-28] MEDS ORDERED: *HR* Heparin 5,000 UNIT/ML VIAL IVP ONE (10:03)
[2018-02-28] MEDS ORDERED: *HR* Heparin 5,000 UNIT/ML VIAL IVP PRN ×2 (10:03)
[2018-02-28 10:06] LABS: BUN/Creatinine Ratio 11 (6-26); Blood Urea Nitrogen 7 mg/dL (6-20); Calcium 9.1 mg/dL (8.6-10.3); Carbon Dioxide 22 mEq/L (23-29); Chloride 102 mEq/L (98-107); Glucose 262 mg/dL (70-105); Osmolality,Calculated 289 (280-300); Potassium 3.6 mEq/L (3.5-5.1); Sodium 136 mEq/L (136-145); eGFR For African Americans > 60 (> 60); eGFR For Non-African Americans > 60 (> 60)
[2018-02-28 10:18] LABS: Prothrombin Time 10.8 Seconds (9.4-12.1)
[2018-02-28 10:20] LABS: Activated Partial Thrombo Time 29.7 Seconds (26.0-36.0)
[2018-02-28] MEDS: Heparin 25,000 UNIT/500 ML D5W 25,000 UNIT/500 ML BAG IVC SCH (10:27)
[2018-02-28] MEDS ORDERED: Naloxone 0.4 MG/ML INJ IVP PRN (11:42)
--- NOTE | 2018-02-28 11:57 | Internal Med History&Physical ---
Date of Encounter: 02/28/18 Time of Encounter: 11:50 Internal Medicine - H&P: HPI Admitted From: Home Plans for Post Hospital Care: Home History of present illness: Ms. Mckee is a 43 year old female who had finished eating dinner, then presented with atypical CP. She indicated that she began coughing and then noticed severe pain on the right side of her back, she then began to have pain that radiated into her chest. She denied nausea, vomiting and diaphoresis. She denied any past hx of cp, and smoking, but indicated that her father had a heart attack when he was 44, he is still living. She indicated that her dad was a smoker. EKG showed NSR rate 95, no ST elevation. She had Q-wave, mild ST depression, and T-wave inversion. Trop was 0.20. She was dx with a NSTEMI in the Ed. Cardiology was consulted and she was started on a Heparin drip. Glucose elevated on admission-276. Bp was elevated at 171/120. Past Med Surg Social Fam HX - Past Medical History Medical history: kidney stones, other Psychiatric history: no psych history - Social History Smoking Status: Never smoker Smokeless Tobacco Status: Yes Alcohol use: none Drug use: none - Family History Mother Living Status: Still Living Hx Family Cardiac Disorders: No Hx Family Respiratory Disorders: No Hx Family Cancer: No Hx Family GI Disorders: No Hx Family Endocrine Disorder: No Hx Family Neuromuscular Disorders: No Hx Family Neurologic Disorders: No Hx Family HEENT Disorders: No Hx Family Autoimmune Disorders: No Father Living Status: Still Living Hx Family Cardiac Disorders: Yes (CAD s/p CABG age 44) Internal Medicine - H&P: Meds metFORMIN [Glucophage] 500 mg PO BID 07/24/16 [History] [place]-3/Dha/Epa/Fish Oil [Fish Oil 1,000 mg Softgel] 1,000 mg PO BID 12/27/16 [ History] Loratadine [Claritin] 10 mg PO DAILY 02/28/18 [History] 3 Allergy/AdvReac Type Severity Reaction Status Date / Time No Known Allergies Allergy Verified 02/28/18 10:16 All Systems PM: A 10-system review of systems was performed and is negative for pertinent findings except as documented above in the HPI. - Constitutional Constitutional: no chills, no fever(s), no night sweats - EENT Eyes: no change in vision, no discharge, no pain, no photophobia Ears: no ear discharge, no ear pain, no tinnitus Nose, mouth and throat: no dysphagia, no nasal discharge, no neck pain, no sore throat - Cardiovascular Cardiovascular ROS IM: no chest pain, no diaphoresis, no dyspnea, no lightheadedness, no palpitations, no syncope - Respiratory Respiratory: no cough, no dyspnea, no wheezing, no excessive phlegm production - Gastrointestinal Gastrointestinal: no abdominal pain, no diarrhea, no hematemesis, no hematochezia, no melena, no nausea, no vomiting - Genitourinary Genitourinary: no change in urinary stream, no dysuria, no flank pain, no hematuria - Musculoskeletal Musculoskeletal ROS IM: no numbness, no tingling - Integumentary Integumentary IM: no rash, no unusual bruising - Neurological Neurological ROS: no confusion, no convulsions, no focal weakness, no numbness, no tingling, no tremor(s) - Hematologic/Lymphatic Hematologic/Lymphatic: no easy bruising - Constitutional Vitals: Temp Pulse Resp BP Pulse Ox 97.9 F 90 18 145/95 99 02/28/18 09:05 02/28/18 10:18 02/28/18 10:18 02/28/18 10:18 02/28/18 10:18 General appearance: Present: A&O X 3, obese - Head Head exam: Present: atraumatic, normocephalic - Eye Eye exam: Present: PERRL, conjuntiva pink, sclera anicteric Pupils: Present: PERRL - Neck Neck exam general surgery: Present: supple, trachea midline. Absent: lymphadenopathy - Respiratory Respiratory exam: Present: CTAB. Absent: accessory muscle use, rales, rhonchi, wheezes - Cardiovascular Cardiovascular exam: Present: RRR, +S1, +S2. Absent: diastolic murmur, gallop, rubs, systolic murmur - GI/Abdominal GI/Abdominal exam: Present: normal bowel sounds, soft, no peritoneal signs. Absent: distended, tenderness - Extremities Exam Extremities exam: Present: warm, radial pulses palpable and symmetrical. Absent : calf tenderness, cyanotic, pedal edema - Neurological Exam Neurological exam: Present: CN II-XII intact, oriented X3, no focal deficits. Absent: pronater drift, facial droop, speech deficit - Skin Skin exam: Present: dry, intact Internal Med - H&P Results - Labs CBC & Chem 7: 02/28/18 09:17 02/28/18 09:17 - Assessment and plan (1) NSTEMI (non-ST elevated myocardial infarction) Current Visit: Yes Status: Acute Assessment and plan: Continue heparin drip. Cont serial cardiac troponins. Echo cardiogram. Cardiology will decide further diagnostic testing. Cardiac monitoring. Nitroglycerin prn. (2) Chest pain Current Visit: Yes Status: Acute Assessment and plan: Continue heparin drip. Cont serial cardiac troponins. Echo cardiogram. Cardiology will decide further diagnostic testing. Cardiac monitoring. Nitroglycerin prn. Qualifiers: Chest pain type: chest pain due to myocardial ischemia Ischemic chest pain type: unspecified angina pectoris type Qualified Code(s): I25.9 - Chronic ischemic heart disease, unspecified (3) Hypertension Current Visit: Yes Status: Acute Assessment and plan: Bp elevated on admission, likely due to chest pain. Will continue nitro prn. Will add prn hydralzine or lopressor if systolic remains above 150 Qualifiers: Hypertension type: unspecified Qualified Code(s): I10 - Essential (primary ) hypertension (4) Hyperglycemia Current Visit: Yes Status: Acute Assessment and plan: The patient will be restarted on her metformin in the am. Accucheck ac/hs. Will consider insulin coverage if remains elevated. HgA1C in am. - Time Spent With Patient Total time spent is greater than 50% in coordination of care (as documented) at patient's floor/unit and/or counseling patient: 25 - 35 minutes
[2018-02-28] MEDS ORDERED: Nitroglycerin 0.4 MG TAB.SUBL SL PRN (12:03)
[2018-02-28] MEDS: Pantoprazole 40 MG VIAL IVP SCH ×2 (14:41→14:46)
--- NOTE | 2018-02-28 15:15 | Cardiology Consult Note ---
Date of Encounter: 02/28/18 Time of Encounter: 15:00 Assessment and Plan (1) NSTEMI (non-ST elevated myocardial infarction) Current Visit: Yes Status: Acute Pt's symptoms of chest/back discomfort consistent with unstable angina. Has dynamic EKG changes with elevated troponin. Will treat with heparin gtt, beta blockade, DAPT. Plan for cardiac catheterization tomorrow/Friday pending symptoms and repeat troponin. All risks/benefits of cardiac catheterization/ possible PCI discussed by me with patient and . Agreeable to proceed. (2) Unstable angina Current Visit: Yes Status: Acute (3) Family history of premature CAD Current Visit: No Status: Chronic Discussion w patient/family: The assessment and plan as outlined above was discussed with the patient and/or family members who expressed understanding and agreement. All questions were answered. Thank you for involving us in the care of your patient. Please call with any questions. History of Present Illness Consult date: 02/28/18 Requesting physician: Trish Leong Consult reason: nonSTEMI Chief complaint: chest pain History of present illness: Ms. Mckee is a 43 year old female with hx PCOS, hyperlipidemia presents to [place] ED c/o CP. Pt states in baseline state of health until last evening when had acute onset of upper back pain that radiated to R shoulder and chest. No associated symptoms. trying rubbing shoulders and used heating pad. Symptoms eventually resolved and pt went to bed. Awoke this AM and had recurrent symptoms around 8am. Due to concern of recurrent symptoms, pt presented for further evaluation/tx. Initial EKG in ED demonstrated NSR with nonspecific T wave changes. Repeat EKG in ED with new T wave inversion in I, biphasic T wave in V2, nonspecific changes in V4-V6. Chest/back pain free in ED and currently. Denies prior cardiac history, testing. Father has CAD and had CABG at age 44. Past Med Surg Social Fam HX - Past Medical History Medical history: diabetes (gestational), hyperlipidemia, kidney stones, other ( PCOS) Psychiatric history: no psych history - Social History Smoking Status: Never smoker Smokeless Tobacco Status: No Alcohol use: none Drug use: none - Family History Mother Living Status: Still Living Hx Family Cardiac Disorders: No Hx Family Respiratory Disorders: No Hx Family Cancer: No Hx Family GI Disorders: No Hx Family Endocrine Disorder: No Hx Family Neuromuscular Disorders: No Hx Family Neurologic Disorders: No Hx Family HEENT Disorders: No Hx Family Autoimmune Disorders: No Father Living Status: Still Living Hx Family Cardiac Disorders: Yes (CAD s/p CABG age 44) Medications and Allergies metFORMIN [Glucophage] 500 mg PO BID 07/24/16 [History] [place]-3/Dha/Epa/Fish Oil [Fish Oil 1,000 mg Softgel] 1,000 mg PO BID 12/27/16 [ History] Loratadine [Claritin] 10 mg PO DAILY 02/28/18 [History] 3 Allergy/AdvReac Type Severity Reaction Status Date / Time No Known Allergies Allergy Verified 02/28/18 10:16 All Systems Review: The remainder of the systems were reviewed and are negative - Cardiovascular Cardiovascular: as per HPI Physical Examination Vital Signs, Last 4 Hours Temp Pulse Resp BP Pulse Ox 02/28/18 13:38 98.0 F 95 15 150/96 98 02/28/18 13:11 98.2 F 18 140/98 General: Conversant, No Apparent Distress HEENT: Atraumatic, Normocephaly, Mucus Membranes Moist Neck: No JVD, Normal carotid pulses Cardiac: Reg Rate and Rhythm, Normal S1 and S2, No Murmur Lungs: Normal Breath Sounds, No Wheeze, Rales, Rhonchi Neuro: Alert and responsive, No focal deficits noted Abdomen: Soft, Non-Tender Skin: No rashes noted on visualized skin Musculoskeletal: No Chest Wall Tenderness Extremities: No Clubbing, No Cyanosis, No Edema, Normal Pulses Results 02/28/18 09:17 02/28/18 09:17 Lab Results 02/28/18 14:45 APTT 66.1 H D - EKG Interpretation EKG results cardiology: personally reviewed (as above) Consult Discharge Plan - Plan Referrals: Magali Thompson MD [Primary Care Provider] -
[2018-02-28] MEDS: Metoprolol XL (24 HR) Succ 25 MG TAB.ER.24H PO SCH (16:02)
[2018-03-01 05:11] LABS: Basophils % 0.5 %; Eosinophils # 0.2 K/mcL (0.0-0.6); Eosinophils % 2.5 %; Hematocrit 39.5 % (35.3-44.9); Hemoglobin 13.7 g/dL (11.5-15.4); Immature Granulocytes % 0.1 % (0-4); Lymphocytes # 3.1 K/mcL (0.6-4.6); Lymphocytes % 42.7 %; Mean Corpuscular HGB Conc 34.7 g/dL (31.6-35.5); Mean Corpuscular Hemoglobin 29.3 pg (28.0-33.3); Mean Corpuscular Volume 84.4 fL (83.0-100.0); Mean Platelet Volume 10.4 fL (9.4-12.4); Monocytes # 0.5 K/mcL (0.0-1.3); Monocytes % 6.7 %; Neutrophils # 3.5 K/mcL (1.6-8.9); Platelet Count 228 K/mcL (140-400); Red Blood Count 4.68 M/mcL (3.82-4.97); Red Cell Distribution Width 13.4 % (11.5-14.5); Segmented Neutrophils % 47.5 %
[2018-03-01 05:34] LABS: BUN/Creatinine Ratio 13 (6-26); Blood Urea Nitrogen 9 mg/dL (6-20); Calcium 8.8 mg/dL (8.6-10.3); Carbon Dioxide 27 mEq/L (23-29); Chloride 101 mEq/L (98-107); Chol/HDL Ratio 7.2 (0-4.9); Cholesterol 186 mg/dL (< 200); Glucose 317 mg/dL (70-105); HDL Cholesterol 26 mg/dL (40-59); LDL Cholesterol,Calculated 101 mg/dL (0-99); Magnesium 1.9 mg/dL (1.6-2.6); Osmolality,Calculated 293 (280-300); Potassium 3.4 mEq/L (3.5-5.1); Sodium 136 mEq/L (136-145); Triglycerides 297 mg/dL (< 150); eGFR For African Americans > 60 (> 60); eGFR For Non-African Americans > 60 (> 60)
[2018-03-01] MEDS: Pantoprazole 40 MG VIAL IVP SCH (08:09)
[2018-03-01] MEDS: Aspirin 81 MG TAB.CHEW PO SCH (08:09)
[2018-03-01] MEDS: Metoprolol XL (24 HR) Succ 25 MG TAB.ER.24H PO SCH (08:09)
[2018-03-01] MEDS: Loratadine 10 MG TABLET PO SCH (08:09)
[2018-03-01] MEDS: Heparin 25,000 UNIT/500 ML D5W 25,000 UNIT/500 ML BAG IVC SCH (08:12)
--- NOTE | 2018-03-01 09:58 | Cardiology Progress Note ---
Date of Encounter: 03/01/18 Time of Encounter: 09:00 Assessment and Plan (1) NSTEMI (non-ST elevated myocardial infarction) Current Visit: Yes Status: Acute Pt's symptoms of chest/back discomfort consistent with unstable angina. Has dynamic EKG changes with elevated troponin. Will treat with heparin gtt, beta blockade, DAPT. Plan for cardiac catheterization tomorrow/Friday pending symptoms and repeat troponin. All risks/benefits of cardiac catheterization/possible PCI discussed by me with patient and . Agreeable to proceed. No chest pain reported overnight. Echocardiogram pending. NPO after MN except medications. (2) Family history of premature CAD Current Visit: No Status: Chronic (3) Unstable angina Current Visit: Yes Status: Acute Discussion w patient/family: The assessment and plan as outlined above was discussed with the patient and/or family members who expressed understanding and agreement. All questions were answered. Thank you for involving us in the care of your patient. Please call with any questions. The patient was discussed and reviewed with Dr. Daisha Flynn. Subjective Principal diagnosis: NSTEMI Interval history: Seen and examined. present at bedside. No chest pain reported overnight. Objective Vital Signs, Last 4 Hours Temp Pulse Resp BP Pulse Ox 03/01/18 07:08 97.7 F 84 15 144/95 97 General: Conversant, No Apparent Distress HEENT: Atraumatic, Normocephaly, Mucus Membranes Moist Cardiac: Reg Rate and Rhythm, Normal S1 and S2 Lungs: Normal Breath Sounds Neuro: Alert and responsive Abdomen: Soft Skin: No rashes noted on visualized skin Musculoskeletal: No Chest Wall Tenderness Extremities: No Edema, Normal Pulses Results 03/01/18 04:19 03/01/18 04:17 Lab Results 02/28/18 02/28/18 02/28/18 14:45 14:45 20:38 WBC Hgb Hct Plt Count APTT 66.1 H D Sodium Potassium Chloride Carbon Dioxide BUN Creatinine Glucose Calcium Magnesium Troponin I 0.40 H* 0.45 H* 02/28/18 03/01/18 03/01/18 20:38 04:17 04:17 WBC Hgb Hct Plt Count APTT 54.7 H Sodium 136 Potassium 3.4 L Chloride 101 Carbon Dioxide 27 BUN 9 Creatinine 0.71 Glucose 317 H Calcium 8.8 Magnesium 1.9 Troponin I 0.28 H* 03/01/18 03/01/18 04:17 04:19 WBC 7.3 Hgb 13.7 D Hct 39.5 Plt Count 228 APTT 84.3 H D Sodium Potassium Chloride Carbon Dioxide BUN Creatinine Glucose Calcium Magnesium Troponin I Active Medications Aspirin (Aspirin) 81 mg PO DAILY [facility] Stop: 08/31/18 09:01 Last Admin: 03/01/18 08:09 Dose: 81 mg Atorvastatin Calcium (Lipitor) 80 mg PO HS [facility] Stop: 08/30/18 21:01 Last Admin: 02/28/18 20:31 Dose: 80 mg Clopidogrel Bisulfate (Plavix) 75 mg PO DAILY [facility] Stop: 08/31/18 09:01 Last Admin: 03/01/18 08:09 Dose: 75 mg Heparin Sodium (Porcine) (Heparin) 4,000 unit IVP Q6HR PRN PRN Reason: SEE COMMENTS Stop: 08/30/18 10:04 Heparin Sodium (Porcine) (Heparin) 2,000 unit IVP Q6H PRN PRN Reason: SEE COMMENTS Stop: 08/30/18 10:04 Heparin Sodium/Dextrose (Heparin 25,000 Unit/500 Ml D5w) 25,000 unit in 500 mls @ 21.772 mls/hr IVC .[id number] MARIJA; 12 UNIT/KG/HR PRN Reason: Protocol Stop: 08/30/18 10:16 Last Admin: 03/01/18 08:12 Dose: 14 unit/kg/hr, 25.401 mls/hr Loratadine (Claritin) 10 mg PO DAILY [facility] PRN Reason: Protocol Stop: 08/31/18 09:01 Last Admin: 03/01/18 08:09 Dose: 10 mg Metoprolol Succinate (Toprol Xl) 25 mg PO DAILY [facility] Stop: 08/30/18 15:46 Last Admin: 03/01/18 08:09 Dose: 25 mg Naloxone HCl (Narcan) 0.4 mg IVP Q2MIN PRN PRN Reason: SEE COMMENTS Stop: 08/30/18 11:43 Nitroglycerin (Nitroglycerin) 0.4 mg SL Q5MIN PRN PRN Reason: Chest Pain Stop: 08/30/18 12:04 Pantoprazole Sodium (Protonix) 40 mg IVP DAILY [facility] Stop: 08/30/18 13:01 Last Admin: 03/01/18 08:09 Dose: 40 mg - Imaging and Cardiology Echo: pending Cardiac cath: pending Other Results: 12 hour tele: avg HR=84 SR. No event noted. - EKG Interpretation EKG results cardiology: personally reviewed Consult Discharge Plan - Plan Referrals: Magali Thompson MD [Primary Care Provider] -
[2018-03-01 13:03] LABS: Estimated Average Glucose 263 mg/dl; Hemoglobin A1C 10.8 %
--- NOTE | 2018-03-01 13:06 | Internal Med Progress Note ---
<Donavon Kelly - Last Filed: 03/01/18 13:03> Date of Encounter: 03/01/18 Time of Encounter: 13:03 - Assessment and plan (1) NSTEMI (non-ST elevated myocardial infarction) Current Visit: Yes Status: Acute Assessment and plan: presented with chest pain EKG: T wave inversion in I, biphasic T wave in V2, nonspecific changes in V4- V6. troponin: 0.20>0.40>0.45>0.28 echo: LVEF 60-65%. Normal LV chamber size, wall thickness and function. Mild left ventricular diastolic dysfunction. Normal right ventricular structure and function. Borderline mild pulmonary hypertension. No significant valvular dysfunction. on heparin gtt, plavix, aspirin, metoprolol, atorvastatin (2) Diabetes mellitus Current Visit: Yes Status: Acute Assessment and plan: suspected patients morning glucose on BMP >200 for last two days will obtain A1c diabetic cardiac diet low dose insulin sliding scale. Qualifiers: Diabetes mellitus type: type 2 Diabetes mellitus prison insulin use: without prison use Diabetes mellitus complication status: without complication Qualified Code(s): E11.9 - Type 2 diabetes mellitus without complications (3) DVT prophylaxis Current Visit: Yes Status: Acute Assessment and plan: heparin gtt - Time Spent With Patient Total time spent is greater than 50% in coordination of care (as documented) at patient's floor/unit and/or counseling patient: - Subjective Interval history: Patient has no complaints. She denies headahce, chest pain, sob, abdominal pain , LE pain. - Constitutional Vitals: Temp Pulse Resp BP Pulse Ox 97.8 F 83 15 137/86 99 03/01/18 11:44 03/01/18 11:44 03/01/18 11:44 03/01/18 11:44 03/01/18 11:44 General appearance: Present: A&O X 3, obese - Other Additional findings: General: without distress HEENT: Head atraumatic, normocephalic, EOMI, PERRL, neck nontender to palpation , absent lymphadenopathy, Moist Mucous Membranes, Heart: Regular rate and rhythm with no murmur Lungs: Clear to auscultation bilaterally Abdomen: Soft nontender, nondistended positive bowel sounds Skin: warm and dry, absent rash Extremities: Absent pedal edema, Neuro: alert oriented x3 Vascular: Pedal and radial pulses 2 out of 4 Internal Medicine: Result - Labs CBC & Chem 7: 03/01/18 04:19 03/01/18 04:17 Labs: Short CBC 03/01/18 Range/Units 04:19 WBC 7.3 (4.3-11.1) K/mcL Hgb 13.7 D (11.5-15.4) g/dL Hct 39.5 (35.3-44.9) % Plt Count 228 (140-400) K/mcL Neutrophils # 3.5 (1.6-8.9) K/mcL BMP 03/01/18 04:17 Sodium 136 Potassium 3.4 L Chloride 101 Carbon Dioxide 27 BUN 9 Creatinine 0.71 Glucose 317 H Calcium 8.8 Cardiac Enzymes 02/28/18 02/28/18 03/01/18 Range/Units 14:45 20:38 04:17 Troponin I 0.40 H* 0.45 H* 0.28 H* (< 0.04) ng/mL - ABG Interpretation ABG results: PT/INR, D-dimer PT 10.8 Seconds (9.4-12.1) 02/28/18 09:17 - Impressions Impressions Echocardiogram 03/01/18 12:03 Impressions: LVEF 60-65%. Normal LV chamber size, wall thickness and function. Mild left ventricular diastolic dysfunction. Normal right ventricular structure and function. Borderline mild pulmonary hypertension. No significant valvular dysfunction. Left Ventricular Wall Motion: Rest Echo Findings All wall segments showed normal motion. Findings: Study Quality * Technically adequate exam. ECG Findings * Normal sinus rhythm. Left Ventricle * LVEF 60-65%. * Normal LV chamber size, wall thickness and function. * Mild left ventricular diastolic dysfunction. Right Ventricle * Normal right ventricular structure and function. Left Atrium * Mildly dilated left atrium. Right Atrium * Normal right atrial size. Aortic Valve * Trileaflet aortic valve with normal function. * No aortic regurgitation. * No aortic stenosis. Mitral Valve * Normal mitral valve structure and function. * No mitral regurgitation. * No mitral stenosis. Tricuspid Valve * Normal tricuspid valve structure and function. * Trace tricuspid regurgitation. * Borderline mild pulmonary hypertension. Pulmonic Valve * Normal pulmonic valve structure and function. * No pulmonic regurgitation. Aorta * Normally sized aortic root. Pericardium * There is a trivial pericardial effusion present. IVC * Normal IVC dimensions and inspiratory collapse. Pulmonary Artery * Normal visualized portions of the main pulmonary artery. 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 Diabetes mellitus complication status: with hyperglycemia Qualified Code(s): E11.65 - Type 2 diabetes mellitus with hyperglycemia (3) DVT prophylaxis Current Visit: Yes Status: Acute - Time Spent With Patient Total time spent is greater than 50% in coordination of care (as documented) at patient's floor/unit and/or counseling patient: - Constitutional Vitals: Temp Pulse Resp BP Pulse Ox 97.8 F 83 15 137/86 99 03/01/18 11:44 03/01/18 11:44 03/01/18 11:44 03/01/18 11:44 03/01/18 11:44 Internal Medicine: Result - Labs CBC & Chem 7: 03/01/18 04:19 03/01/18 04:17 Labs: Short CBC 03/01/18 Range/Units 04:19 WBC 7.3 (4.3-11.1) K/mcL Hgb 13.7 D (11.5-15.4) g/dL Hct 39.5 (35.3-44.9) % Plt Count 228 (140-400) K/mcL Neutrophils # 3.5 (1.6-8.9) K/mcL BMP 03/01/18 04:17 Sodium 136 Potassium 3.4 L Chloride 101 Carbon Dioxide 27 BUN 9 Creatinine 0.71 Glucose 317 H Calcium 8.8 Cardiac Enzymes 02/28/18 02/28/18 03/01/18 Range/Units 14:45 20:38 04:17 Troponin I 0.40 H* 0.45 H* 0.28 H* (< 0.04) ng/mL - ABG Interpretation ABG results: PT/INR, D-dimer PT 10.8 Seconds (9.4-12.1) 02/28/18 09:17 - Impressions Impressions Echocardiogram 03/01/18 12:03 Impressions: LVEF 60-65%. Normal LV chamber size, wall thickness and function. Mild left ventricular diastolic dysfunction. Normal right ventricular structure and function. Borderline mild pulmonary hypertension. No significant valvular dysfunction. Left Ventricular Wall Motion: Rest Echo Findings All wall segments showed normal motion. Findings: Study Quality * Technically adequate exam. ECG Findings * Normal sinus rhythm. Left Ventricle * LVEF 60-65%. * Normal LV chamber size, wall thickness and function. * Mild left ventricular diastolic dysfunction. Right Ventricle * Normal right ventricular structure and function. Left Atrium * Mildly dilated left atrium. Right Atrium * Normal right atrial size. Aortic Valve * Trileaflet aortic valve with normal function. * No aortic regurgitation. * No aortic stenosis. Mitral Valve * Normal mitral valve structure and function. * No mitral regurgitation. * No mitral stenosis. Tricuspid Valve * Normal tricuspid valve structure and function. * Trace tricuspid regurgitation. * Borderline mild pulmonary hypertension. Pulmonic Valve * Normal pulmonic valve structure and function. * No pulmonic regurgitation. Aorta * Normally sized aortic root. Pericardium * There is a trivial pericardial effusion present. IVC * Normal IVC dimensions and inspiratory collapse. Pulmonary Artery * Normal visualized portions of the main pulmonary artery. - Attending Attestation I examined this patient and my medical decision-making was reviewed with the Resident Physician on 03/01/18. I agree with the documented findings, disposition and treatment plan as described except to the extent set forth below. Ms Mckee is currently admitted for acute NSTEMI and management of new diabetes. She remains moderate to high risk due to potential for worsening clinical status. Ms Mckee has no chest pain. No fever. Overall feels OK. No GI issues. Exam alert Comfortable Mucus membranes dry Heart not tachy No wheeze abd soft I/P 1. NSTEMI - C tomorrow 2. DM - new and uncontrolled Further diagnoses and plan as above.
[2018-03-01] MEDS ORDERED: D5% in Water 1,000 ML IVC PRN (14:10)
[2018-03-01] MEDS ORDERED: *HR* Dextrose 50 % in Water (Syg) 50 ML SYRINGE IVP PRN (14:10)
[2018-03-01] MEDS ORDERED: Dextrose Gel 15 GM/37.5 ML TUBE PO PRN ×2 (14:10)
[2018-03-01] MEDS: Insulin LISPRO 300 UNITS/3 ML VIAL SQ SCH ×2 (18:10→20:37)
[2018-03-01] MEDS: Insulin DETEMIR 100 UNIT/ML X5UNITS SQ SCH (20:38)
[2018-03-02] MEDS: Heparin 25,000 UNIT/500 ML D5W 25,000 UNIT/500 ML BAG IVC SCH ×2 (04:42→21:28)
[2018-03-02 05:03] LABS: Basophils % 0.6 %; Eosinophils # 0.2 K/mcL (0.0-0.6); Eosinophils % 2.5 %; Hematocrit 41.2 % (35.3-44.9); Immature Granulocytes % 0.1 % (0-4); Lymphocytes # 2.5 K/mcL (0.6-4.6); Lymphocytes % 36.9 %; Mean Corpuscular Hemoglobin 28.3 pg (28.0-33.3); Mean Corpuscular Volume 83.2 fL (83.0-100.0); Mean Platelet Volume 10.4 fL (9.4-12.4); Monocytes # 0.5 K/mcL (0.0-1.3); Monocytes % 7.2 %; Neutrophils # 3.6 K/mcL (1.6-8.9); Platelet Count 221 K/mcL (140-400); Red Blood Count 4.95 M/mcL (3.82-4.97); Red Cell Distribution Width 13.2 % (11.5-14.5); Segmented Neutrophils % 52.7 %
[2018-03-02 05:22] LABS: BUN/Creatinine Ratio 16 (6-26); Blood Urea Nitrogen 11 mg/dL (6-20); Calcium 9.1 mg/dL (8.6-10.3); Carbon Dioxide 25 mEq/L (23-29); Chloride 102 mEq/L (98-107); Glucose 267 mg/dL (70-105); Osmolality,Calculated 291 (280-300); Potassium 3.3 mEq/L (3.5-5.1); Sodium 136 mEq/L (136-145); eGFR For African Americans > 60 (> 60); eGFR For Non-African Americans > 60 (> 60)
[2018-03-02] MEDS ORDERED: 0.9 % Sodium Chloride 1,000 ML ONE ×2 (08:48→09:11)
[2018-03-02] MEDS ORDERED: Nitroglycerin 1,000 MCG/10 ML VIAL IV ONE (08:49)
[2018-03-02] MEDS: Pantoprazole 40 MG VIAL IVP SCH (08:49)
[2018-03-02] MEDS: Loratadine 10 MG TABLET PO SCH (08:49)
[2018-03-02] MEDS: Aspirin 81 MG TAB.CHEW PO SCH (08:49)
[2018-03-02] MEDS ORDERED: Heparin 1,000 UNITS/500 mL 500 ML ONE (08:49)
[2018-03-02] MEDS ORDERED: ISOVUE-370 200 ML INFUS..BTL IV ONE ×2 (08:49→09:40)
[2018-03-02] MEDS ORDERED: *HR* Heparin 10,000 UNIT/10 ML VIAL ONE (08:49)
[2018-03-02] MEDS: Metoprolol XL (24 HR) Succ 25 MG TAB.ER.24H PO SCH (08:49)
[2018-03-02] MEDS: Insulin LISPRO 300 UNITS/3 ML VIAL SQ SCH ×4 (08:50→21:20)
--- NOTE | 2018-03-02 09:10 | Pre-Sedation Evaluation ---
Pre-sedation evaluation - Pre-sedation checklist Date of procedure: 03/02/18 Procedure: LHC Recent Vitals: Last Vital Signs Temp 97.8 F 03/02/18 06:50 Pulse 86 03/02/18 06:50 Resp 16 03/02/18 06:50 BP 156/95 03/02/18 06:50 Pulse Ox 99 03/02/18 06:50 ASA Classification *see protocol: CLASS II-Mild systemic disease
[2018-03-02] MEDS ORDERED: *HR* Midazolam HCl 2 MG/2 ML VIAL ONE (09:13)
[2018-03-02] MEDS ORDERED: *HR* FentaNYL (PF) 100 MCG/2 ML VIAL ONE (09:14)
[2018-03-02] MEDS ORDERED: Tirofiban 12.5 MG/250ML 12.5 MG/250 ML BAG ONE (09:36)
[2018-03-02] MEDS ORDERED: *HR* Ticagrelor 90 MG TABLET ONE (10:17)
--- NOTE | 2018-03-02 10:38 | Internal Med Progress Note ---
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 Diabetes mellitus complication status: with hyperglycemia Qualified Code(s): E11.65 - Type 2 diabetes mellitus with hyperglycemia (3) DVT prophylaxis Current Visit: Yes Status: Acute - Time Spent With Patient Total time spent is greater than 50% in coordination of care (as documented) at patient's floor/unit and/or counseling patient: - Constitutional Vitals: Temp Pulse Resp BP Pulse Ox 97.8 F 86 16 156/95 99 03/02/18 06:50 03/02/18 06:50 03/02/18 06:50 03/02/18 06:50 03/02/18 06:50 General appearance: Present: A&O X 3, obese Internal Medicine: Result - Labs CBC & Chem 7: 03/02/18 04:29 03/02/18 04:29 Labs: Short CBC 03/02/18 Range/Units 04:29 WBC 6.8 (4.3-11.1) K/mcL Hgb 14.0 (11.5-15.4) g/dL Hct 41.2 (35.3-44.9) % Plt Count 221 (140-400) K/mcL Neutrophils # 3.6 (1.6-8.9) K/mcL BMP 03/02/18 04:29 Sodium 136 Potassium 3.3 L Chloride 102 Carbon Dioxide 25 BUN 11 Creatinine 0.69 Glucose 267 H Calcium 9.1 - ABG Interpretation ABG results: PT/INR, D-dimer PT 10.8 Seconds (9.4-12.1) 02/28/18 09:17 - Impressions Impressions Echocardiogram 03/01/18 12:03 Impressions: LVEF 60-65%. Normal LV chamber size, wall thickness and function. Mild left ventricular diastolic dysfunction. Normal right ventricular structure and function. Borderline mild pulmonary hypertension. No significant valvular dysfunction. Left Ventricular Wall Motion: Rest Echo Findings All wall segments showed normal motion. Findings: Study Quality * Technically adequate exam. ECG Findings * Normal sinus rhythm. Left Ventricle * LVEF 60-65%. * Normal LV chamber size, wall thickness and function. * Mild left ventricular diastolic dysfunction. Right Ventricle * Normal right ventricular structure and function. Left Atrium * Mildly dilated left atrium. Right Atrium * Normal right atrial size. Aortic Valve * Trileaflet aortic valve with normal function. * No aortic regurgitation. * No aortic stenosis. Mitral Valve * Normal mitral valve structure and function. * No mitral regurgitation. * No mitral stenosis. Tricuspid Valve * Normal tricuspid valve structure and function. * Trace tricuspid regurgitation. * Borderline mild pulmonary hypertension. Pulmonic Valve * Normal pulmonic valve structure and function. * No pulmonic regurgitation. Aorta * Normally sized aortic root. Pericardium * There is a trivial pericardial effusion present. IVC * Normal IVC dimensions and inspiratory collapse. Pulmonary Artery * Normal visualized portions of the main pulmonary artery. Consult Discharge Plan - Plan Referrals: Magali Thompson MD [Primary Care Provider] -
--- NOTE | 2018-03-02 10:49 | Invasive Diagnostic Lab Proc ---
Name: Taisha Mckee Date of Study: 03/02/2018 Date: 1975 Ht: 65.0in Medical Record#: [id number] Age: 43 Wt: 209.44lb Gender: Female BSA: 2.02 Order #: [id number] BMI: 34.89 Physicians Procedure Physician: Estuardo Renae MD, [facility] Referring MD: Referring MD: Staff Name Position Time In Barbra Aguilar RT (R) Scrub 09:03 AM Popeye Charlotte RT (R) Monitor 09:[address] RN Crop Puller 09:03 AM Indications Indication Non-Stemi Procedures Performed Procedure L HRT ARTERY/VENTRICLE ANGIO Pre-Procedure Checklist Informed consent is complete signed and on chart. H&P is on chart. ID band is on and ID verified with patient. Patient NPO for procedure The procedure was described for the patient and questions were answered. ECG is on chart. Plan of Care Patient will tolerate the procedure without complications. Adequate level of comfort will be maintained. Hemodynamics will remain stable Patient will recover from procedure without complications. Respiratory function will be maintained. Cardiac rhythm will remain stable. Patient temperature will be maintained. Patient and/or family have verbalized understanding of the procedure. Patient Education Chief Complaint/Reason for Test: Cardiac Cath Developmental Category: Adult (18-64 years) Developmentally Appropriate for Age: Yes Learning Barriers: None Education Needs: Procedure Education Method: Verbal Information Taught: Cardiac Cath Educational Evaluation: Able to repeat information Intravenous Access Time IV Size Location DC'd Fluid/Drip Rate Units RN 18g 1 /" Patent On Arrival 0.9NaCl ml/hr Allergies No Known Allergies Vital Signs Time BP (mmHg) HR (bpm) O2 Sat. RR (bpm) LOC 156 / 95 86 99 % 16 5 = Fully awake and oriented or at pre-proc level 09:18 AM / % 5 = Fully awake and oriented or at pre-proc level 09:19 AM / % 4 = Oriented but drowsy 09:34 AM / % 4 = Oriented but drowsy 09:49 AM / % 4 = Oriented but drowsy 10:05 AM / % 5 = Fully awake and oriented or at pre-proc level 10:01 AM 166 / 97 99 100 % 10:06 AM 160 / 100 103 100 % 10:11 AM 136 / 88 96 95 % 10:16 AM 148 / 87 93 96 % 10:21 AM 145 / 90 73 98 % 09:22 AM 151 / 101 97 99 % 09:26 AM 153 / 101 100 100 % 09:31 AM 157 / 98 103 99 % 09:36 AM 154 / 98 106 100 % 09:41 AM 172 / 116 107 100 % 09:46 AM 171 / 110 106 99 % 09:47 AM 160 / 94 106 99 % 09:51 AM 169 / 106 96 100 % 09:56 AM 157 / 98 99 100 % Procedural Medications Time Medication Dose Units Method Given By 09:15 AM Oxygen 2 L/min nasal cannula Franc Lane RN 09:15 AM Versed [address] RN 09:15 AM Fentanyl [address] RN 09:25 AM Lidocaine 2% 20 ml Subcutaneous Estuardo Renae MD, [facility] 09:36 AM Heparin [address] RN 09:39 AM Aggrastat Bolus: [address] RN 09:39 AM Aggrastat 12.5mg/250ml 16.5 ml/hr Intravenous Franc Lane RN 09:45 AM Nitroglycerin 150 mcg Intravenous Gary Allen MD 09:46 AM Nitroglycerin 150 mcg Intracoronary Gary Allen MD 10:06 AM Nitroglycerin 150 mcg Intracoronary Gary Allen MD 10:06 AM Versed [address] RN 10:06 AM Fentanyl [address] RN 10:07 AM Nitroglycerin 200 mcg Intracoronary Gary Allen MD 10:09 AM Nitroglycerin 200 mcg Intracoronary Gary Allen MD 10:12 AM Nitroglycerin 100 mcg Intracoronary StalinussGary fenton MD 10:17 AM Brilinta [address] RN ASA Classification: CLASS II- Mild systemic disease (i.e. well-controlled diabetes, hypertension, asthma, cigarette smoking) Indy Score Preprocedure Postprocedure Activity 2- Moves 4 extremities sustained head lift Activity 2- Moves 4 extremities sustained head lift Circulation 2- SBP +/= 20 points of pre-anesthetic level Circulation 2- SBP +/= 20 points of pre-anesthetic level Consciousness 2- Awake and alert oriented x 3 Consciousness 2- Awake and alert oriented x 3 O2 Saturation 2- Able to maintain O2 satruation of 92% on room air O2 Saturation 2- Able to maintain O2 satruation of 92% on room air Respiratory 2- Able to deep breathe and cough well Respiratory 2- Able to deep breathe and cough well Total Score 10 Total Score 10 Contrast Agent: Isovue Diagnostic Contrast: 260 ml Total Contrast: 260 ml Fluoro Dose: 1514 mGy Activated Clotting Time Time Seconds to Clot 09:34 AM 154 Procedure Log Time Note Enter By 09:03 AM Barbra Aguilar RT (R) Position: Scrub Time in: :03 dspell 09:03 AM Charlotte Nye RT (R) Position: Monitor Time in: :03 09:[address] RN Position: Crop Puller Time in: :03 dspell 09:04 AM Patient charges- Angio tray pack, Navilyst 3mm J, Pulse Oximetry and ACIST tubing and transducer dspell 09:04 AM IV Supplies used: J loop Angio Cath. dspell 09:04 AM Case Delayed no, inpatient dspell 09:04 AM CathStat 09:15 AM Case Start 09:15 AM Physician arrived 09:15 09:15 AM Meet and greet completed 09:15 AM Sign in performed according to hospital policy. 09:15 AM Procedure start 09:15 09:15 AM Time: 09:15 Oxygen on at 2 L/min per nasal cannula by Franc Lane RN :15 AM Time: 09:15 Versed 1 mg Intravenous Given by Franc Lane RN [facility] 09:15 AM Time: 09:15 Fentanyl 50 mcg Intravenous Given by Franc Lane RN :18 AM ASA Class CLASS II- Mild systemic disease (i.e. well-controlled diabetes, hypertension, asthma, cigarette smoking) :18 AM Time: 09:18 Patient comfortable and pain free: Yes :19 AM Time: 09:18LOC: 5 = Fully awake and oriented or at pre-proc level dspell:19 AM Pressure channel 1 zeroed. 09:20 AM Pressure channel 1 zeroed. 09:20 AM Vitals capture started with the following parameters, Patient=Adult, Interval=5 min, Initial Vxwshlrk=415 mmHg, Deflation Rate=5 mmHg, Cuff placed on Right Arm 09:22 AM HR=97 bpm, PWVN=957/101 mmhg, SpO2=99.0 %, Comment=sinus Tach 09:22 AM Clinical Presentation: Non-STEMI :24 AM Time out performed according to hospital policy : AM Time: 09:25 20 ml Lidocaine 2% to right groin Subcutaneous Given by Estuardo Renae MD, [facility] 09:26 AM AF=721 bpm, XXKC=328/101 mmhg, YoY1=393.0 %, Comment=sinus Tach 09:27 AM Micro-Introducer Kit utilized for sheath placement : AM Access obtained by percutaneous puncture. 6Fr 10cm Terumo Palisade sheath placed in right Femoral artery. [id number] :29 AM 5Fr FR 4 catheter inserted over the wire [facility] :29 AM Recorded Pressure: Ao, EO=707, Condition=Condition 1 (Aorta) Ao 160/106/132 09:31 AM 0.035 145cm Navilyst 3mmJ wire [id number] :31 AM RCA angiography performed in multiple views. :31 AM XP=922 bpm, BJTI=488/98 mmhg, SpO2=99.0 %, Comment=sinus Tach 09:31 AM Catheter removed :32 AM 5Fr FL 4 catheter inserted over the wire [facility] :33 AM Recorded Pressure: Ao, EF=359, Condition=Condition 1 (Aorta) Ao 151/110/129 09:33 AM LCA angiography performed in multiple views. 34 AM Time: 09:18 Patient comfortable and pain free: Yes 34 AM Time: 09:19LOC: 4 = [facility]ed but drowsy [facility] AM At 09:34 the ACT was 154 seconds. 09:35 AM PCI Status Urgent 09:35 AM PCI Indication: PCI for high risk Non-STEMI or unstable angina dsp 09:36 AM Recorded Pressure: LV, EM=142, Condition=Condition 1 (Left Ventricle) LV 163/17/24 09:36 AM Recorded Pressure: LV, Ao, EZ=897, Condition=Condition 1 (Left Ventricle) LV 154/15/22, (Aorta) Ao 156/104/128 09:36 AM NX=274 bpm, YCLC=239/98 mmhg, MzW2=011.0 %, Comment=sinus Tach 09:36 AM PCI lesion in Mid LAD. Pre Stenosis: 70 Pre DIMITRY Flow: 2: Partial Flow/Perfusion (> 1 but < 3) dspell 09:37 AM Time: 09:36 Heparin 4500 units Intravenous Given by Franc Lane RN dspprincess 09:37 AM 6Fr XB LAD 3.5 Cordis guide catheter was used to cannulate the PCI vessel successfully. reused? No dspell 09:37 AM .014 [employer] [place] 190cm guide wire across target lesion- successful. reused? No dspell 09:37 AM Inflation device was opened. dspell 09:39 AM 2.0 mm x 12 mm Emerge Monorail balloon across target lesion- successful. reused? No dspell 09:39 AM Time: 09:39 Aggrastat Bolus: 46 ml Intravenous Given by Franc Lane RN Valderrama pump dspell 09:40 AM Time: 09:39 Aggrastat 12.5mg/250ml 16.5 ml/hr Intravenous Given by Franc Lane RN Valderrama pump dspell 09:40 AM Recorded Pressure: Ao, WI=705, Condition=Condition 1 (Aorta) Ao 155/105/129 09:41 AM GT=818 bpm, OXRX=973/116 mmhg, JkY3=720.0 %, Comment=sinus Tach 09:42 AM Balloon inflated @ 6 saurabh for 7 seconds dspell 09:42 AM Balloon inflated @ 6 saurabh for 5 seconds dspell 09:42 AM Balloon inflated @ 6 saurabh for 6 seconds dspellman 09:44 AM PCI lesion in Proximal LAD. Pre Stenosis: 99 Pre DIMITRY Flow: 2: Partial Flow/Perfusion (> 1 but < 3) dspell 09:45 AM Recorded Pressure: Ao, QO=584, Condition=Condition 1 (Aorta) Ao 190/124/155 09:45 AM Time: 09:45 Nitroglycerin 150 mcg Intracornary Given by Gary Allen MD [facility] 09:46 AM XA=075 bpm, AIKW=128/110 mmhg, SpO2=99.0 %, Comment=sinus Tach 09:46 AM Time: 09:46 Nitroglycerin 150 mcg Intracoronary Given by Gary Allen MD [facility] 09:47 AM NIBP STAT measurement started. 09:47 AM CK=238 bpm, ZHSF=471/94 mmhg, SpO2=99 % 09:48 AM PCI lesion in Mid LAD. dspell 09:49 AM Time: 09:34LOC: 4 = Oriented but drowsy dspellman 09:49 AM Time: 09:34 Patient comfortable and pain free: Yes dspell 09:50 AM 2.5mm x 12mm Synergy drug-eluting stent across target lesion- successful Lot #[id number] dspellman 09:51 AM Stent deployed @ 11 saurabh for 14 seconds dspellman 09:51 AM Stent deployed @ 11 saurabh for 9 seconds dspellman 09:51 AM HR=96 bpm, BQWW=412/106 mmhg, WbN6=323 % 09:52 AM Stent balloon reinflated @ 14 saurabh for 12 seconds dspellman 09:52 AM Stent delivery system removed intact. dspell 09:55 AM 3.0mm x 24mm Synergy drug-eluting stent across target lesion- successful Lot #[id number] dspellman 09:56 AM HR=99 bpm, CKJZ=960/98 mmhg, TeT6=963 % 09:57 AM Stent deployed @ 9 saurabh for 9 seconds dspellman 09:58 AM Stent balloon reinflated @ 14 saurabh for 8 seconds dspellman 09:59 AM Recorded Pressure: Ao, HR=97, Condition=Condition 1 (Aorta) Ao 169/108/137 09:59 AM Stent delivery system removed intact. dspell 10:01 AM HR=99 bpm, LIWT=438/97 mmhg, BhO0=815.0 %, Comment=sinus Tach 10:03 AM 3.5mm x 24mm Synergy drug-eluting stent across target lesion- successful Lot #[id number] dspellman 10:04 AM Stent deployed @ 11 saurabh for 10 seconds dspell 10:05 AM Time: 09:49 Patient comfortable and pain free: Yes dspell 10:05 AM Time: 09:49LOC: 4 = Oriented but drowsy dspellman 10:05 AM Stent balloon reinflated @ 16 saurabh for 11 seconds dspellman 10:05 AM Stent delivery system removed intact. dspell 10:06 AM Time: 10:06 Nitroglycerin 150 mcg Intracoronary Given by Gary Allen MD dspell 10:06 AM Recorded Pressure: Ao, VV=596, Condition=Condition 1 (Aorta) Ao 158/98/126 10:06 AM DM=094 bpm, NMPV=240/100 mmhg, QeA1=902.0 %, Comment=sinus Tach 10:06 AM Time: 10:06 Versed 1 mg Intravenous Given by Franc Lane RN [facility] 10:06 AM Time: 10:06 Fentanyl 50 mcg Intravenous Given by Franc [facility] RN [facility] 10:07 AM Time: 10:07 Nitroglycerin 200 mcg Intracoronary Given by Gary Allen MD [facility] 10:09 AM Time: 10:09 Nitroglycerin 200 mcg Intracoronary Given by Gary Allen MD [facility] 10:11 AM HR=96 bpm, EJQR=499/88 mmhg, SpO2=95.0 %, Comment=sinus 10:13 AM Time: 10:12 Nitroglycerin 100 mcg Intracoronary Given by [facility] MD [facility] 10:14 AM Guide wire removed intact. dspellman 10:14 AM Stent delivery system removed intact. dspellman 10:14 AM Guide catheter removed intact. [facility] 10:14 AM Procedure completed at 10:14 [facility] 10:15 AM Did you address DIMITRY flow and Dominance? Yes [facility] 10:16 AM Sign out completed: Radiation Dose 1513.62 mGy Fluoro Time: 11.1 Isovue 370 - 200ml contrast 260 ml given by Estuardo Renae MD, [facility]. Complications: NoneCardiac Rehab Consult needed: NoConfirmed administered medications: Yes [facility] 10:16 AM HR=93 bpm, MKYW=603/87 mmhg, SpO2=96.0 %, Comment=sinus 10:17 AM Time: 10:17 Brilinta 180 mg Orally Given by Franc Lane RN [facility] 10:21 AM Time: 10:05LOC: 5 = Fully awake and oriented or at pre-proc level dspellman 10:21 AM Time: 10:05 Patient comfortable and pain free: Yes dspellman 10:21 AM HR=73 bpm, NLTQ=308/90 mmhg, SpO2=98.0 %, Comment=sinus 10:21 AM Coronary Dominance: right dspellman 10:22 AM Lesion found in Distal Circumflex. Pre Stenosis: 65 Pre DIMITRY Flow: 3: Complete and Brisk Flow/Perfusion dspellman 10:22 AM Lesion found in 1st Marginal. Pre Stenosis: 40 Pre DIMITRY Flow: 3: Complete and Brisk Flow/Perfusion dspellman 10:22 AM Lesion found in Mid RCA. Pre Stenosis: 50 Pre DIMITRY Flow: 3: Complete and Brisk Flow/Perfusion dspellman 10:25 AM Proximal Left Anterior Descending Coronary Artery with 99% stenosis. If graft is supplying this territory, 0 % stenosis. dspellman 10:28 AM Isovue 370 - 200ml,1 Bottle(s) used. dspellman 10:29 AM Arterial sheath pulled, Angio-seal closure device used and was Successful [id number] S/N. dspellman 10:29 AM Estimated Blood Loss: minimal dspellman 10:30 AM Post ECG NSR dspellman 10:30 AM Post Blood Pressure 145/90 dspellman 10:30 AM 10:30 Post Pulses Bilateral DP & PT 2+ dspellman 10:31 AM Information taught Cardiac Cath, PCI, and Angioseal dspellman 10:32 AM Education needs Procedure, Plan of Care, and Responsibilities of Patient in Care dspellman 10:32 AM Learning barriers :None dspellman 10:32 AM Education Methods Verbal dspellman 10:32 AM Education evaluation Able to repeat information dspellman 10:32 AM Site status No bleeding/hematoma - Rt Groin as reported by Barbra Aguilar RT (R) at 10:32 dspellman 10:32 AM Opsite applied dspellman 10:33 AM Report given to Gisele PÑEA Pt taken to 2N Room #9. 10:32 dspellman 10:33 AM Delay to floor No dspellman 10:33 AM Patient out of room: 10:33 dspellman 10:33 AM Family placed in consult room. dspellman 10:33 AM Complications: None dspellman 10:33 AM Fluoro Time: 11.1 dspellman 10:33 AM Isovue 370 - 200ml contrast 260 ml given by wilfredo. dspellman 10:33 AM Radiation Dose 1513.62 mGy dspellman Complications Complication None None Hemodynamics Pressures Site Systolic/A Wave Diastolic/V Wave Mean AO 160 106 132 AO 151 110 129 LV 163 17 24 LV 154 15 22 AO 156 104 128 AO 155 105 129 AO 190 124 155 AO 169 108 137 AO 158 98 126 Post Procedure Information Blood Pressure: 145/90 mmHg Rhythm: NSR Post procedural instructions were given Closure Device Time Device Success/Fail 03/02/2018 10:34:00 AM Angio-seal Evolution Successful Site Checks Time Location Status Staff Sheath In? Note 10:32 AM Rt Groin No bleeding/hematoma Barbra Aguilar RT (R) Pulses Time Site Pre-Procedure Post-Procedure Note Bilateral DP & PT 2+ Bilateral radial 2+ 10:30:00 AM Bilateral DP & PT 2+ Updated by Charlotte Nye RT (R) on 03/02/2018 10:42:14 AM Charlotte Nye RT electronically signed on 03/02/2018 10:43:29 AM with status of Final
[2018-03-02] MEDS ORDERED: *HR* FentaNYL (PF) 100 MCG/2 ML VIAL IVP ONE (11:37)
[2018-03-02] MEDS ORDERED: Tirofiban 12.5 MG/250ML 12.5 MG/250 ML BAG IVC SCH (11:45)
--- NOTE | 2018-03-02 13:55 | Electrocardiograph Report ---
[address] [place], [place] [address] Test Date: 2018-03-02 Pat Name: Tasiha Mckee Department: 110 Room: 2N09 Gender: F [employer] Cook: : 1975 Requested By: Tristen Allen Order Number: [id number] Reading MD: Micheline Villafuerte Measurements Intervals [place] Rate: 89 P: 42 [place]: 145 QRS: 36 QRSD: 85 T: 116 QT: 372 QTc: 418 Interpretive Statements SINUS RHYTHM ST DEVIATION AND MODERATE T-WAVE ABNORMALITY, CONSIDER LATERAL ISCHEMIA Electronically Signed On 03-02-2018 13:53:15 EDT by Micheline Villafuerte
--- NOTE | 2018-03-02 14:22 | Electrocardiograph Report ---
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
--- NOTE | 2018-03-02 14:24 | Electrocardiograph Report ---
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
[2018-03-02] MEDS ORDERED: OXYCODONE Oral CONC 10 MG/0.5 ML ORAL.SYG SL PRN (15:54)
--- NOTE | 2018-03-02 19:19 | Internal Med Progress Note ---
Date of Encounter: 03/02/18 Time of Encounter: 14:30 - Assessment and plan (1) NSTEMI (non-ST elevated myocardial infarction) Current Visit: Yes Status: Acute Assessment and plan: presented with chest pain EKG: T wave inversion in I, biphasic T wave in V2, nonspecific changes in V4- V6. troponin: 0.20>0.40>0.45>0.28 echo: LVEF 60-65%. Normal LV chamber size, wall thickness and function. Mild left ventricular diastolic dysfunction. Normal right ventricular structure and function. Borderline mild pulmonary hypertension. No significant valvular dysfunction. 03/02 - Had LHC today and stent in LAD On Brlinta/ASA (2) Diabetes mellitus Current Visit: Yes Status: Acute Assessment and plan: suspected patients morning glucose on BMP >200 for last two days will obtain A1c diabetic cardiac diet low dose insulin sliding scale. Discussed need for diabetic education and management. Qualifiers: Diabetes mellitus type: type 2 Diabetes mellitus [facility] insulin use: without exterminator use Diabetes mellitus complication status: with hyperglycemia Qualified Code(s): E11.65 - Type 2 diabetes mellitus with hyperglycemia (3) DVT prophylaxis Current Visit: Yes Status: Acute - Time Spent With Patient Total time spent is greater than 50% in coordination of care (as documented) at patient's floor/unit and/or counseling patient: - Subjective Interval history: Ms Mckee is currently admitted for acute NSTEMI. She remains moderate to high risk due to potential for worsening clinical status. Ms Mckee had LHC and stent in LAD. She is doing Ok post procedure. No dyspnea. No GI issues. - Constitutional Vitals: Temp Pulse Resp BP Pulse Ox 98.0 F 92 18 136/90 97 03/02/18 16:37 03/02/18 16:37 03/02/18 16:37 03/02/18 16:37 03/02/18 16:37 General appearance: Present: A&O X 3, obese - Head Head exam: Present: normocephalic - Eye Eye exam: Present: conjuntiva pink - ENT ENT exam: Present: mucous membranes dry - Respiratory Respiratory exam: Present: CTAB. Absent: respiratory distress, tachypnea - Cardiovascular Cardiovascular exam: Present: RRR. Absent: tachycardia - GI/Abdominal GI/Abdominal exam: Present: soft. Absent: tenderness - Extremities Exam Extremities exam: Present: warm. Absent: tenderness - Neurological Exam Neurological exam: Present: alert, oriented X3, no focal deficits - Skin Skin exam: Present: dry, warm Internal Medicine: Result - Labs CBC & Chem 7: 03/02/18 04:29 03/02/18 04:29 Labs: Short CBC 03/02/18 Range/Units 04:29 WBC 6.8 (4.3-11.1) K/mcL Hgb 14.0 (11.5-15.4) g/dL Hct 41.2 (35.3-44.9) % Plt Count 221 (140-400) K/mcL Neutrophils # 3.6 (1.6-8.9) K/mcL BMP 03/02/18 04:29 Sodium 136 Potassium 3.3 L Chloride 102 Carbon Dioxide 25 BUN 11 Creatinine 0.69 Glucose 267 H Calcium 9.1 - ABG Interpretation ABG results: PT/INR, D-dimer PT 10.8 Seconds (9.4-12.1) 02/28/18 09:17 Consult Discharge Plan - Plan Referrals: Magali Thompson MD [Primary Care Provider] - (called Donna's office and they said they would have to call us back because there were no openings) Tristen Allen [Partnered Physician] - (Office will call patient at home with follow up appointment)
[2018-03-02] MEDS: *HR* Ticagrelor 90 MG TABLET PO SCH (21:19)
[2018-03-02] MEDS: Insulin DETEMIR 100 UNIT/ML X5UNITS SQ SCH (21:19)
[2018-03-03 05:30] LABS: Basophils # 0.1 K/mcL (0.0-0.2); Basophils % 0.6 %; Eosinophils # 0.2 K/mcL (0.0-0.6); Eosinophils % 2.4 %; Hematocrit 40.7 % (35.3-44.9); Hemoglobin 13.4 g/dL (11.5-15.4); Immature Granulocytes % 0.1 % (0-4); Lymphocytes # 1.7 K/mcL (0.6-4.6); Lymphocytes % 19.9 %; Mean Corpuscular HGB Conc 32.9 g/dL (31.6-35.5); Mean Corpuscular Hemoglobin 27.5 pg (28.0-33.3); Mean Corpuscular Volume 83.6 fL (83.0-100.0); Mean Platelet Volume 9.9 fL (9.4-12.4); Monocytes # 0.6 K/mcL (0.0-1.3); Monocytes % 7.4 %; Neutrophils # 5.9 K/mcL (1.6-8.9); Platelet Count 201 K/mcL (140-400); Red Blood Count 4.87 M/mcL (3.82-4.97); Red Cell Distribution Width 13.2 % (11.5-14.5); Segmented Neutrophils % 69.6 %
[2018-03-03 05:47] LABS: BUN/Creatinine Ratio 18 (6-26); Blood Urea Nitrogen 11 mg/dL (6-20); Carbon Dioxide 24 mEq/L (23-29); Chloride 104 mEq/L (98-107); Glucose 199 mg/dL (70-105); Osmolality,Calculated 287 (280-300); Sodium 136 mEq/L (136-145); eGFR For African Americans > 60 (> 60); eGFR For Non-African Americans > 60 (> 60)
[2018-03-03 08:00] VITALS: BP 141/93
[2018-03-03] MEDS: Insulin LISPRO 300 UNITS/3 ML VIAL SQ SCH ×2 (08:27→13:05)
[2018-03-03] MEDS: *HR* Ticagrelor 90 MG TABLET PO SCH (08:28)
[2018-03-03] MEDS: Loratadine 10 MG TABLET PO SCH (08:28)
[2018-03-03] MEDS: Metoprolol XL (24 HR) Succ 25 MG TAB.ER.24H PO SCH (08:28)
[2018-03-03] MEDS: Aspirin 81 MG TAB.CHEW PO SCH (08:28)
--- NOTE | 2018-03-03 08:50 | Cardiology Progress Note ---
Date of Encounter: 03/03/18 Time of Encounter: 08:00 Assessment and Plan (1) NSTEMI (non-ST elevated myocardial infarction) Current Visit: Yes Status: Acute Pt's symptoms of chest/back discomfort consistent with unstable angina. Has dynamic EKG changes with elevated troponin. TTE: EF normal, normal wall motion. 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 EF normal. No chest pain reported overnight. Post PCI discharge instructions discussed including care of cath site and uninterrupted DAPT (asa + brilinta) for a minimum of 1 year, pt verbalized understanding. Continue statin, BB. Recommend NTG tabs upon discharge. Recommend close outpatient follow-up with PCP regarding aggressive mgmt of DMII. A1C=10.8. Education provided to patient at length regarding adverse effects of brilinta/ statin; has been recommended against future pregnancies while on these medications due to potential teratogenic effects. Will coordinate outpatient f/u with Dr. Allen in 5-7 days. (2) Family history of premature CAD Current Visit: No Status: Chronic (3) Unstable angina Current Visit: Yes Status: Acute Discussion w patient/family: The assessment and plan as outlined above was discussed with the patient and/or family members who expressed understanding and agreement. All questions were answered. Thank you for involving us in the care of your patient. Please call with any questions. The patient was discussed and reviewed with Dr. Renae; Cardiology will sign-off, will coordinate outpatient f/u. Subjective Principal diagnosis: NSTEMI Interval history: Seen and examined. [facility] findings reviewed with patient. No complaints overnight. No reported chest pain. No issues with cath site. Objective Vital Signs, Last 4 Hours Temp Pulse Resp BP Pulse Ox 03/03/18 07:25 98.1 F 97 19 141/93 98 General: Conversant, No Apparent Distress HEENT: Atraumatic, Normocephaly Cardiac: Reg Rate and Rhythm, Normal S1 and S2 Lungs: Normal Breath Sounds Neuro: Alert and responsive Abdomen: Soft Skin: No rashes noted on visualized skin Musculoskeletal: No Chest Wall Tenderness Extremities: No Edema, Normal Pulses Other: right femoral cath site: dressing arya, dry and intact. No hematoma or oozing noted at site. Results 03/03/18 05:08 03/03/18 05:08 Lab Results 03/02/18 03/03/18 03/03/18 15:52 05:08 05:08 WBC 8.5 Hgb 13.4 Hct 40.7 Plt Count 201 APTT 29.4 D Sodium 136 Potassium 4.0 Chloride 104 Carbon Dioxide 24 BUN 11 Creatinine 0.61 Glucose 199 H Calcium 9.0 Active Medications Aspirin (Aspirin) 81 mg PO DAILY MARIJA Stop: 08/31/18 09:01 Last Admin: 03/03/18 08:28 Dose: 81 mg Atorvastatin Calcium (Lipitor) 80 mg PO HS [facility] Stop: 08/30/18 21:01 Last Admin: 03/02/18 21:19 Dose: 80 mg Dextrose/Water (Dextrose 50% (Syg)) 25 ml IVP AD PRN PRN Reason: Hypoglycemia Stop: 08/31/18 14:11 Glucagon (Glucagen) 1 mg IM ONCE PRN PRN Reason: Hypoglycemia Stop: 08/31/18 14:11 Glucose (Gluctose) 15 gm PO ONCE PRN PRN Reason: Hypoglycemia Stop: 08/31/18 14:11 Glucose (Gluctose) 30 gm PO ONCE PRN PRN Reason: Hypoglycemia Stop: 08/31/18 14:11 Heparin Sodium (Porcine) (Heparin) 4,000 unit IVP Q6HR PRN PRN Reason: SEE COMMENTS Stop: 08/30/18 10:04 Heparin Sodium (Porcine) (Heparin) 2,000 unit IVP Q6H PRN PRN Reason: SEE COMMENTS Stop: 08/30/18 10:04 Dextrose (Dextrose 5%) 1,000 mls @ 100 mls/hr IVC .Q10H PRN PRN Reason: HYPOGLYCEMIA Stop: 08/31/18 14:11 Insulin Detemir (Levemir) 10 unit SQ HS [facility] Stop: 08/31/18 21:01 Last Admin: 03/02/18 21:19 Dose: 10 unit Insulin Human Lispro (Humalog) 0 units SQ HS [facility] PRN Reason: Protocol Stop: 08/31/18 21:01 Last Admin: 03/02/18 21:20 Dose: Not Given Insulin Human Lispro (Humalog) 0 units SQ TIDAC [facility] PRN Reason: Protocol Stop: 08/31/18 16:31 Last Admin: 03/03/18 08:27 Dose: 4 units Loratadine (Claritin) 10 mg PO DAILY MARIJA PRN Reason: Protocol Stop: 08/31/18 09:01 Last Admin: 03/03/18 08:28 Dose: 10 mg Metoprolol Succinate (Toprol Xl) 25 mg PO DAILY [facility] Stop: 08/30/18 15:46 Last Admin: 03/03/18 08:28 Dose: 25 mg Naloxone HCl (Narcan) 0.4 mg IVP Q2MIN PRN PRN Reason: SEE COMMENTS Stop: 08/30/18 11:43 Nitroglycerin (Nitroglycerin) 0.4 mg SL Q5MIN PRN PRN Reason: Chest Pain Stop: 08/30/18 12:04 Last Admin: 03/02/18 11:22 Dose: 0.4 mg Omeprazole (Prilosec) 20 mg PO DAILY@0730 [facility] Stop: 09/02/18 07:31 Last Admin: 03/03/18 06:52 Dose: 20 mg Oxycodone HCl (Oxycodone Oral Conc) 5 mg SL Q6HR PRN; Protocol PRN Reason: Pain Stop: 09/01/18 15:55 Last Admin: 03/03/18 03:47 Dose: 5 mg Ticagrelor (Brilinta) 90 mg PO BID [facility] Stop: 09/01/18 21:01 Last Admin: 03/03/18 08:28 Dose: 90 mg - Imaging and Cardiology Echo: report reviewed Cardiac cath: report reviewed Other Results: 12 hour tele: avg HR=86 SR. No events noted. - EKG Interpretation EKG results cardiology: personally reviewed Consult Discharge Plan - Plan Referrals: Magali Thompson MD [Primary Care Provider] - (called Donna's office and they said they would have to call us back because there were no openings) Tristen Allen [Partnered Physician] - (Office will call patient at home with follow up appointment)
--- NOTE | 2018-03-03 09:56 | Discharge Summary ---
<Shad Echavarria - Last Filed: 03/03/18 11:25> - NOTES TO OUTPATIENT PROVIDER Notes to Outpatient Provider: The patient was seen for chest pain and recieved stents to the proximal and mid LAD. She will be discharged home on brilinta, asa , atorvastatin, and metoprolol. She will need follow up with cardiology within a week. Also needs metformin and Lantus at discharge, follow-up with pcp. Orders not resulted at time of discharge: Pending orders 03/02/18 11:43 ECG 12 lead ECG [ECG] Routine ECG 12 lead ECG [ECG] Stat 03/03/18 07:00 ECG 12 lead ECG [ECG] Routine Date of Encounter: 03/03/18 Time of Encounter: 08:00 - Discharge Diagnosis (1) NSTEMI (non-ST elevated myocardial infarction) Priority: Primary Status: Acute Assessment and Plan: presented with chest pain EKG: T wave inversion in I, biphasic T wave in V2, nonspecific changes in V4- V6. troponin: 0.20>0.40>0.45>0.28 echo: LVEF 60-65%. Normal LV chamber size, wall thickness and function. Mild left ventricular diastolic dysfunction. Normal right ventricular structure and function. Borderline mild pulmonary hypertension. No significant valvular dysfunction. 03/02 - Had LHC yesterday and stent in LADx2 On Brlinta/ASA Start atorvastatin (2) Hypertension Priority: Secondary Status: Chronic Assessment and Plan: Hypertensive while in hospital, will require medication Due to diabetes, losartan is good option, however the patient would prefer not to start JERROD/ARB at this time Continue Metoprolol, follow with PCP for management Qualifiers: Hypertension type: essential hypertension Qualified Code(s): I10 - Essential (primary) hypertension (3) Diabetes mellitus Priority: Secondary Status: Acute Assessment and Plan: suspected patients morning glucose on BMP >200 for last two days will obtain A1c diabetic cardiac diet Discussed need for diabetic education and management. 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 Mckee is a 43 year old female - Time Spent with Patient Total time spent providing and/or coordinating discharge services: - Discharge Medications Prescriptions: Atorvastatin Calcium [Lipitor] 80 mg PO HS #30 tab Insulin ASPART [Novolog Flexpen] 0 unit SQ TIDAC #1 kit Insulin Glargine [Lantus] 10 unit SQ HS 30 Days #1 kit Metoprolol Succinate [Toprol Xl] 25 mg PO DAILY #30 tab.er.24h Pen Needle, Diabetic [Caretouch Pen Needle] 1 each SQ TIDAC #90 dis.needle Ticagrelor [Brilinta] 90 mg PO BID #60 tablet Home Medications: metFORMIN [Glucophage] 500 mg PO BID 07/24/16 [History] Rampart-3/Dha/Epa/Fish Oil [Fish Oil 1,000 mg Softgel] 1,000 mg PO BID 12/27/16 [ History] Loratadine [Claritin] 10 mg PO DAILY 02/28/18 [History] Atorvastatin Calcium [Lipitor] 80 mg PO HS #30 tab 03/03/18 [Rx] Insulin ASPART [Novolog Flexpen] 0 unit SQ TIDAC #1 kit 03/03/18 [Rx] Insulin Glargine [Lantus] 10 unit SQ HS 30 Days #1 kit 03/03/18 [Rx] Metoprolol Succinate [Toprol Xl] 25 mg PO DAILY #30 tab.er.24h 03/03/18 [Rx] Pen Needle, Diabetic [Caretouch Pen Needle] 1 each SQ TIDAC #90 dis.needle 03/03 [Rx] Ticagrelor [Brilinta] 90 mg PO BID #60 tablet 03/03/18 [Rx] Allergies/Adverse Reactions: 3 Allergy/AdvReac Type Severity Reaction Status Date / Time No Known Allergies Allergy Verified 02/28/18 10:16 Date of admission: 02/28/18 12:19 Primary care physician: Magali Thompson Consults: 03/02/18 11:43 Consult to Cardiac Rehabilitation-Phase1 [CONS] Routine Comment: Reason for Consult: AMI Call Completed: Yes Consult to Nurse Navigator [CONS] Routine Comment: 03/02/18 14:17 dietary consult [Consult to Nutrition] [CONS] Routine Comment: Consulting Provider: NUTRITION Reason for Dietary Consult: Diet Education Other:: New DM diagnosis, needs education Discharging clinician: Shad Echavarria Anticipated date of discharge: 03/03/18 - Constitutional Vitals: Temp Pulse Resp BP Pulse Ox 98.1 F 97 19 141/93 98 03/03/18 07:25 03/03/18 07:25 03/03/18 07:25 03/03/18 07:25 03/03/18 07:25 General appearance: Present: A&O X 3, obese Exam: Gen: Vitals noted. No acute distress. HEENT: PERRL/EOMI, oropharynx clear, Normocephalic, atraumatic Neck: Supple. No adenopathy. Cardiac: RRR, no murmur, +S1/S2 Pulmonary: CTA bilaterally, no wheezes, rales or rhonchi, equal chest expansion Abdomen: soft, nontender, no guarding Back: Nontender throughout. MSK: ROM intact, no joint swelling noted Extremities: no BLE edema, nontender calf, no cyanosis or clubbing Neuro: moves all extremities, no focal deficits Psych: Appropriate mood and behavior - Patient Status Disposition: Home, Self-Care Condition: Fair Functional capacity at discharge: independent ambulation Overall status at discharge: patient is back to baseline - Discharge Instructions Instructions: Metoprolol (By mouth), Insulin Aspart, Recombinant (Injection), Insulin Glargine (Injection), Ticagrelor (By mouth), Myocardial Infarction (DC) , Chest Pain (DC) Follow Up With: Magali Thompson MD [Primary Care Provider] - (called [facility]'s office and they said the patient will have to see cardiology before they make an appointment for her.) Tristen Allen [Partnered Physician] - (Office will call patient at home with follow up appointment) Additional Instructions: Follow-up with cardiology in one week Follow-up with PCP in 2-4 days Continue Insulin as directed. Use sliding scale as listed below for Mealtime Insulin BG 150-199: 1 unit Bolus Insulin BG 200-249: 2 units Bolus Insulin BG 250-299: 3 units Bolus Insulin BG 300-349: 4 units Bolus Insulin BG Over 350: 5 units Bolus Insulin Use SL Nitrolgycerin as needed for recurrent chest pains Return to ED for similar or returned symptoms, severe chest pain, shortness of breath, changes in level of consciousness. - Diet and Activity Activity: increase activity as tolerated Diet: diabetic diet, low salt diet <Ady Hunt H - Last Filed: 03/03/18 13:01> Orders not resulted at time of discharge: Pending orders 03/02/18 11:43 ECG 12 lead ECG [ECG] Stat 03/03/18 07:00 ECG 12 lead ECG [ECG] Routine Date of Encounter: 03/03/18 - Discharge Diagnosis (1) NSTEMI (non-ST elevated myocardial infarction) Status: Acute (2) Hypertension Status: Chronic Qualifiers: Hypertension type: essential hypertension Qualified Code(s): I10 - Essential (primary) hypertension (3) Diabetes mellitus Status: Acute Qualifiers: Diabetes mellitus type: type 2 Diabetes mellitus snf insulin use: without computer terminal operator use Diabetes mellitus complication status: with hyperglycemia Qualified Code(s): E11.65 - Type 2 diabetes mellitus with hyperglycemia Hospital course: Ms. Mckee is a 43 year old female - Time Spent with Patient Total time spent providing and/or coordinating discharge services: Date of admission: 02/28/18 12:19 Primary care physician: Magali Thompson Consults: 03/02/18 11:43 Consult to Cardiac Rehabilitation-Phase1 [CONS] Routine Comment: Reason for Consult: AMI Call Completed: Yes Consult to Nurse Navigator [CONS] Routine Comment: 03/02/18 14:17 dietary consult [Consult to Nutrition] [CONS] Routine Comment: Consulting Provider: NUTRITION Reason for Dietary Consult: Diet Education Other:: New DM diagnosis, needs education - Constitutional Vitals: Temp Pulse Resp BP Pulse Ox 98.1 F 97 19 141/93 98 03/03/18 07:25 03/03/18 07:25 03/03/18 07:25 03/03/18 07:25 03/03/18 07:25 - Attending Attestation Ms. Mckee is a 43 year old female with hx PCOS, hyperlipidemia presents to [facility] c/o CP. Pt stated in baseline state of health until last evening when had acute onset of upper back pain that radiated to R shoulder and chest. No associated symptoms. trying rubbing shoulders and used heating pad. Symptoms eventually resolved and pt went to bed. Awoke this AM and had recurrent symptoms around 8am. Due to concern of recurrent symptoms, pt presented for further evaluation/tx. Initial EKG in ED demonstrated NSR with nonspecific T wave changes. Repeat EKG in ED with new T wave inversion in I, biphasic T wave in V2, nonspecific changes in V4-V6. Chest/back pain free in ED and currently. Father has CAD and had CABG at age 44. LHC performed, 2 DAMON placed on LAD Hb A1c was 10.8 required insulin time spent: 40 min I examined this patient and my medical decision-making was reviewed with the Resident Physician. I agree with the documented findings, disposition and treatment plan as described except to the extent set forth below.
--- NOTE | 2018-03-03 10:02 | Invasive Diagnostic Lab Proc ---
Name: Taisha Mckee Date of Study: 03/02/2018 Date: 1975 Ht: 65.0in Medical Record#: [id number] Age: 43 Wt: 209.44lb Gender: Female BSA: 2.02 Order #: [id number] BMI: 34.89 Physicians Procedure Physician: Tristen Allen MD Referring MD: Referring MD: Staff Name Position Time In Barbra Aguilar RT (R) Scrub 09:03 AM Charlotte Nye RT (R) Monitor 09:[address] RN Sap Gatherer 09:03 AM Indications Indication Non-Stemi Procedures Performed Procedure L HRT ARTERY/VENTRICLE ANGIO PRQ CARD DAMON STENT W/ANGIO 1 VSL MOD SED OTH PHYS/QHP 5/>YRS MOD SED OTHER PHYS/QHP EA MOD SED OTHER PHYS/QHP EA MOD SED OTHER PHYS/QHP EA Pre-Procedure Checklist Informed consent is complete signed and on chart. H&P is on chart. ID band is on and ID verified with patient. Patient NPO for procedure The procedure was described for the patient and questions were answered. ECG is on chart. Plan of Care Patient will tolerate the procedure without complications. Adequate level of comfort will be maintained. Hemodynamics will remain stable Patient will recover from procedure without complications. Respiratory function will be maintained. Cardiac rhythm will remain stable. Patient temperature will be maintained. Patient and/or family have verbalized understanding of the procedure. Patient Education Chief Complaint/Reason for Test: Cardiac Cath Developmental Category: Adult (18-64 years) Developmentally Appropriate for Age: Yes Learning Barriers: None Education Needs: Procedure Education Method: Verbal Information Taught: Cardiac Cath Educational Evaluation: Able to repeat information Intravenous Access Time IV Size Location DC'd Fluid/Drip Rate Units RN 18g 1 /" Patent On Arrival 0.9NaCl ml/hr Allergies No Known Allergies Vital Signs Time BP (mmHg) HR (bpm) O2 Sat. RR (bpm) LOC 156 / 95 86 99 % 16 5 = Fully awake and oriented or at pre-proc level 09:18 AM / % 5 = Fully awake and oriented or at pre-proc level 09:19 AM / % 4 = Oriented but drowsy 09:34 AM / % 4 = Oriented but drowsy 09:49 AM / % 4 = Oriented but drowsy 10:05 AM / % 5 = Fully awake and oriented or at pre-proc level 09:22 AM 151 / 101 97 99 % 09:26 AM 153 / 101 100 100 % 09:31 AM 157 / 98 103 99 % 09:36 AM 154 / 98 106 100 % 09:41 AM 172 / 116 107 100 % 09:46 AM 171 / 110 106 99 % 09:47 AM 160 / 94 106 99 % 09:51 AM 169 / 106 96 100 % 09:56 AM 157 / 98 99 100 % 10:01 AM 166 / 97 99 100 % 10:06 AM 160 / 100 103 100 % 10:11 AM 136 / 88 96 95 % 10:16 AM 148 / 87 93 96 % 10:21 AM 145 / 90 73 98 % Procedural Medications Time Medication Dose Units Method Given By 09:15 AM Oxygen 2 L/min nasal cannula Franc Lane RN 09:15 AM Versed [address] RN 09:15 AM Fentanyl [address] RN 09:25 AM Lidocaine 2% 20 ml Subcutaneous Gary Allen MD 09:36 AM Heparin [address] RN 09:39 AM Aggrastat Bolus: [address] RN 09:39 AM Aggrastat 12.5mg/250ml 16.5 ml/hr Intravenous Franc Lane RN 09:45 AM Nitroglycerin 150 mcg Intravenous Gary Allen MD 09:46 AM Nitroglycerin 150 mcg Intracoronary Gary Allen MD 10:06 AM Nitroglycerin 150 mcg Intracoronary Gary Allen MD 10:06 AM Versed [address] RN 10:06 AM Fentanyl [address] RN 10:07 AM Nitroglycerin 200 mcg Intracoronary Gary Allen MD 10:09 AM Nitroglycerin 200 mcg Intracoronary Gary Allen MD 10:12 AM Nitroglycerin 100 mcg Intracoronary Gary Allen MD 10:17 AM Brilinta [address] RN ASA Classification: CLASS II- Mild systemic disease (i.e. well-controlled diabetes, hypertension, asthma, cigarette smoking) Indy Score Preprocedure Postprocedure Activity 2- Moves 4 extremities sustained head lift Activity 2- Moves 4 extremities sustained head lift Circulation 2- SBP +/= 20 points of pre-anesthetic level Circulation 2- SBP +/= 20 points of pre-anesthetic level Consciousness 2- Awake and alert oriented x 3 Consciousness 2- Awake and alert oriented x 3 O2 Saturation 2- Able to maintain O2 satruation of 92% on room air O2 Saturation 2- Able to maintain O2 satruation of 92% on room air Respiratory 2- Able to deep breathe and cough well Respiratory 2- Able to deep breathe and cough well Total Score 10 Total Score 10 Contrast Agent: Isovue Diagnostic Contrast: 260 ml Total Contrast: 260 ml Fluoro Dose: 1514 mGy Activated Clotting Time Time Seconds to Clot 09:34 AM 154 Procedure Log Time Note Enter By 09:03 AM Barbra Aguilar RT (R) Position: Scrub Time in: 09:03 dspell 09:03 AM Charlotte Nye RT (R) Position: Monitor Time in: :03 09:[address] RN Position: Sap Gatherer Time in: 09:03 ell 09:04 AM Patient charges- Angio tray pack, Navilyst 3mm J, Pulse Oximetry and ACIST tubing and transducer dspell 09:04 AM IV Supplies used: J loop Angio Cath. dspell 09:04 AM Case Delayed no, inpatient dspell 09:04 AM CathStat 09:15 AM Case Start 09:15 AM Physician arrived 09:15 09:15 AM Venkatesh and damian completed 09:15 AM Sign in performed according to hospital policy. 09:15 AM Procedure start 09:15 dsp 09:15 AM Time: 09:15 Oxygen on at 2 L/min per nasal cannula by Frnac Lane RN 09:15 AM Time: 09:15 Versed 1 mg Intravenous Given by Franc Lane RN princess 09:15 AM Time: 09:15 Fentanyl 50 mcg Intravenous Given by Franc Lane RN 09:18 AM ASA Class CLASS II- Mild systemic disease (i.e. well-controlled diabetes, hypertension, asthma, cigarette smoking) ell:18 AM Time: 09:18 Patient comfortable and pain free: Yes dspell:19 AM Time: 09:18LOC: 5 = Fully awake and oriented or at pre-proc level dspell 09:19 AM Pressure channel 1 zeroed. 09:20 AM Pressure channel 1 zeroed. 09:20 AM Vitals capture started with the following parameters, Patient=Adult, Interval=5 min, Initial Sdwxzhbt=375 mmHg, Deflation Rate=5 mmHg, Cuff placed on Right Arm 09:22 AM HR=97 bpm, EXEB=107/101 mmhg, SpO2=99.0 %, Comment=sinus Tach 09:22 AM Clinical Presentation: Non-STEMI 09:24 AM Time out performed according to hospital policy : AM Time: :25 20 ml Lidocaine 2% to right groin Subcutaneous Given by Tristen Allen MD :26 AM MH=168 bpm, MSPP=237/101 mmhg, KkO7=626.0 %, Comment=sinus Tach 09:27 AM Micro-Introducer Kit utilized for sheath placement :28 AM Access obtained by percutaneous puncture. 6Fr 10cm Terumo [place] sheath placed in right Femoral artery. [id number] 09:29 AM 5Fr FR 4 catheter inserted over the wire [facility] [place] :29 AM Recorded Pressure: Ao, VU=732, Condition=Condition 1 (Aorta) Ao 160/106/132 09:31 AM 0.035 145cm Navilyst 3mmJ wire [id number] 09:31 AM RCA angiography performed in multiple views. 09:31 AM AA=234 bpm, HMPA=398/98 mmhg, SpO2=99.0 %, Comment=sinus Tach 09:31 AM Catheter removed 09:32 AM 5Fr FL 4 catheter inserted over the wire [facility] 09:33 AM Recorded Pressure: Ao, XP=159, Condition=Condition 1 (Aorta) Ao 151/110/129 09:33 AM LCA angiography performed in multiple views. :34 AM Time: 09:18 Patient comfortable and pain free: Yes :34 AM Time: 09:19LOC: 4 = Oriented but drowsy dspell:34 AM At 09:34 the ACT was 154 seconds. 09:35 AM PCI Status Urgent 09:35 AM PCI Indication: PCI for high risk Non-STEMI or unstable angina dspell 09:36 AM Recorded Pressure: LV, RP=633, Condition=Condition 1 (Left Ventricle) LV 163/17/24 09:36 AM Recorded Pressure: LV, Ao, MU=030, Condition=Condition 1 (Left Ventricle) LV 154/15/22, (Aorta) Ao 156/104/128 09:36 AM JS=960 bpm, CCFC=926/98 mmhg, OtF4=848.0 %, Comment=sinus Tach 09:36 AM PCI lesion in Mid LAD. Pre Stenosis: 70 Pre DIMITRY Flow: 2: Partial Flow/Perfusion (> 1 but < 3) dspell 09:37 AM Time: 09:36 Heparin 4500 units Intravenous Given by Franc Lane RN dspell 09:37 AM 6Fr XB LAD 3.5 Cordis guide catheter was used to cannulate the PCI vessel successfully. reused? No dspell 09:37 AM .014 [employer] [place] 190cm guide wire across target lesion- successful. reused? No dspell 09:37 AM Inflation device was opened. dspell 09:39 AM 2.0 mm x 12 mm Emerge Monorail balloon across target lesion- successful. reused? No dspell 09:39 AM Time: 09:39 Aggrastat Bolus: 46 ml Intravenous Given by Franc Lane RN Valderrama pump dspell 09:40 AM Time: 09:39 Aggrastat 12.5mg/250ml 16.5 ml/hr Intravenous Given by Franc Lane RN Valderrama pump dspell 09:40 AM Recorded Pressure: Ao, BA=059, Condition=Condition 1 (Aorta) Ao 155/105/129 09:41 AM PR=984 bpm, HUXW=460/116 mmhg, LiT4=324.0 %, Comment=sinus Tach 09:42 AM Balloon inflated @ 6 saurabh for 7 seconds dspellman 09:42 AM Balloon inflated @ 6 saurabh for 5 seconds dspell 09:42 AM Balloon inflated @ 6 saurabh for 6 seconds dspellman 09:44 AM PCI lesion in Proximal LAD. Pre Stenosis: 99 Pre DIMITRY Flow: 2: Partial Flow/Perfusion (> 1 but < 3) dspell 09:45 AM Recorded Pressure: Ao, TX=883, Condition=Condition 1 (Aorta) Ao 190/124/155 09:45 AM Time: 09:45 Nitroglycerin 150 mcg Intracornary Given by Gary Allen MD 09:46 AM XU=794 bpm, UHAG=625/110 mmhg, SpO2=99.0 %, Comment=sinus Tach 09:46 AM Time: 09:46 Nitroglycerin 150 mcg Intracoronary Given by Gary Allen MD dspell 09:47 AM NIBP STAT measurement started. 09:47 AM ZY=126 bpm, HZZS=825/94 mmhg, SpO2=99 % 09:48 AM PCI lesion in Mid LAD. dspell 09:49 AM Time: 09:34LOC: 4 = Oriented but drowsy dspellman 09:49 AM Time: 09:34 Patient comfortable and pain free: Yes dspell 09:50 AM 2.5mm x 12mm Synergy drug-eluting stent across target lesion- successful Lot #[id number] dspellman 09:51 AM Stent deployed @ 11 saurabh for 14 seconds dspellman 09:51 AM Stent deployed @ 11 saurabh for 9 seconds dspellman 09:51 AM HR=96 bpm, WJDE=419/106 mmhg, IsR3=145 % 09:52 AM Stent balloon reinflated @ 14 sauarbh for 12 seconds dspellman 09:52 AM Stent delivery system removed intact. dspell 09:55 AM 3.0mm x 24mm Synergy drug-eluting stent across target lesion- successful Lot #[id number] dspellman 09:56 AM HR=99 bpm, YTVV=730/98 mmhg, QqE2=264 % 09:57 AM Stent deployed @ 9 saurabh for 9 seconds dspellman 09:58 AM Stent balloon reinflated @ 14 saurabh for 8 seconds dspellman 09:59 AM Recorded Pressure: Ao, HR=97, Condition=Condition 1 (Aorta) Ao 169/108/137 09:59 AM Stent delivery system removed intact. dspell 10:01 AM HR=99 bpm, SVUW=094/97 mmhg, ToS2=320.0 %, Comment=sinus Tach 10:03 AM 3.5mm x 24mm Synergy drug-eluting stent across target lesion- successful Lot #[id number] dspellman 10:04 AM Stent deployed @ 11 saurabh for 10 seconds dspellman 10:05 AM Time: 09:49 Patient comfortable and pain free: Yes dspellman 10:05 AM Time: 09:49LOC: 4 = Oriented but drowsy dspellman 10:05 AM Stent balloon reinflated @ 16 saurabh for 11 seconds dspellman 10:05 AM Stent delivery system removed intact. dspell 10:06 AM Time: 10:06 Nitroglycerin 150 mcg Intracoronary Given by Gary Allen MD 10:06 AM Recorded Pressure: Ao, SY=617, Condition=Condition 1 (Aorta) Ao 158/98/126 10:06 AM JH=463 bpm, EQMK=132/100 mmhg, IwZ7=593.0 %, Comment=sinus Tach 10:06 AM Time: 10:06 Versed 1 mg Intravenous Given by Franc Lane RN 10:06 AM Time: 10:06 Fentanyl 50 mcg Intravenous Given by Franc Lane RN 10:07 AM Time: 10:07 Nitroglycerin 200 mcg Intracoronary Given by Gary Allen MD 10: AM Time: 10: Nitroglycerin 200 mcg Intracoronary [facility] AM HR=96 bpm, MGKD=355/88 mmhg, SpO2=95.0 %, Comment=sinus 10:13 AM Time: 10:12 Nitroglycerin 100 mcg Intracoronary Given by Gary Allen MD [facility] 10:14 AM Guide wire removed intact. [facility] 10:14 AM Stent delivery system removed intact. [facility] 10:14 AM Guide catheter removed intact. [facility] 10:14 AM Procedure completed at 10:14 [facility] 10:15 AM Did you address DIMITRY flow and Dominance? Yes [facility] 10:16 AM Sign out completed: Radiation Dose 1513.62 mGy Fluoro Time: 11.1 Isovue 370 - 200ml contrast 260 ml given by Tristen Allen MD. Complications: NoneCardiac Rehab Consult needed: NoConfirmed administered medications: Yes [facility] 10:16 AM HR=93 bpm, WTXA=201/87 mmhg, SpO2=96.0 %, Comment=sinus 10:17 AM Time: 10:17 Brilinta 180 mg Orally [facility] Franc [facility]: AM Time: 10:05LOC: 5 = Fully awake and oriented or at pre-proc level [facility] 10:21 AM Time: 10:05 Patient comfortable and pain free: Yes [facility] 10:21 AM HR=73 bpm, ZUWM=406/90 mmhg, SpO2=98.0 %, Comment=sinus 10:21 AM Coronary Dominance: right dspellman 10:22 AM Lesion found in Distal Circumflex. Pre Stenosis: 65 Pre DIMITRY Flow: 3: Complete and Brisk Flow/Perfusion dspellman 10:22 AM Lesion found in 1st Marginal. Pre Stenosis: 40 Pre DIMITRY Flow: 3: Complete and Brisk Flow/Perfusion dspellman 10:22 AM Lesion found in Mid RCA. Pre Stenosis: 50 Pre DIMITRY Flow: 3: Complete and Brisk Flow/Perfusion dspellman 10:25 AM Proximal Left Anterior Descending Coronary Artery with 99% stenosis. If graft is supplying this territory, 0 % stenosis. dspellman 10:28 AM Isovue 370 - 200ml,1 Bottle(s) used. dspellman 10:29 AM Arterial sheath pulled, Angio-seal closure device used and was Successful [id number] S/N. dspellman 10:29 AM Estimated Blood Loss: minimal dspellman 10:30 AM Post ECG NSR dspellman 10:30 AM Post Blood Pressure 145/90 dspellman 10:30 AM 10:30 Post Pulses Bilateral DP & PT 2+ dspellman 10:31 AM Information taught Cardiac Cath, PCI, and Angioseal dspellman 10:32 AM Education needs Procedure, Plan of Care, and Responsibilities of Patient in Care dspellman 10:32 AM Learning barriers :None dspellman 10:32 AM Education Methods Verbal dspellman 10:32 AM Education evaluation Able to repeat information dspellman 10:32 AM Site status No bleeding/hematoma - Rt Groin as reported by Barbra Aguilar RT (R) at 10:32 dspellman 10:32 AM Opsite applied dspellman 10:33 AM Report given to Gisele PEÑA Pt taken to 2N Room #9. 10:32 dspellman 10:33 AM Delay to floor No dspellman 10:33 AM Patient out of room: 10:33 dspellman 10:33 AM Family placed in consult room. dspellman 10:33 AM Complications: None dspellman 10:33 AM Fluoro Time: 11.1 dspellman 10:33 AM Isovue 370 - 200ml contrast 260 ml given by wilfredo. dspellman 10:33 AM Radiation Dose 1513.62 mGy dspellman Equipment Used Size Length Diameter Item Category ACT Other Angio tray pack Other J-loop Other Micro-Introducer Kit Other Terumo [place] sheath Navilyst 3mmJ wire Guideliner Guide catheter BMW Guidewire Inflation kit Other Emerge PTCA Dilatation Catheter Monorail Balloon Valderrama pump Other Promus Element Plus Rx Drug Eluting Stent Promus Element Plus Rx Drug Eluting Stent Promus Element Plus Rx Drug Eluting Stent Angio-seal Evolution Sealant Complications Complication None None Hemodynamics Pressures Site Systolic/A Wave Diastolic/V Wave Mean AO 160 106 132 AO 151 110 129 LV 163 17 24 LV 154 15 22 AO 156 104 128 AO 155 105 129 AO 190 124 155 AO 169 108 137 AO 158 98 126 Post Procedure Information Blood Pressure: 145/90 mmHg Rhythm: NSR Post procedural instructions were given Closure Device Time Device Success/Fail 03/02/2018 10:34:00 AM Angio-seal Evolution Successful Site Checks Time Location Status Staff Sheath In? Note 10:32 AM Rt Groin No bleeding/hematoma Barbra Aguilar RT (R) Pulses Time Site Pre-Procedure Post-Procedure Note Bilateral DP & PT 2+ Bilateral radial 2+ 10:30:00 AM Bilateral DP & PT 2+ Updated by Charlotte Nye RT (R) on 03/03/2018 9:56:35 AM RT Roly electronically signed on 03/03/2018 9:57:25 AM with status of Final
== END 2018-03-03 13:31 | disposition home or self-care (01) | DRG 247 ==
LOC: EMEROO 09:00 → 2NENU 09:00 → SUATTDRO 12:19 → 2NENU 13:33 → 2NNU 03-02 09:43
PROVIDERS: ADMIT Nurse Practitioner Family; ATTEND Internal Medicine